=== PATIENT | female | born 1960 | race American Indian/Alaskan Native ===

== ENCOUNTER 2017-09-09 19:22 | Emergency (ER) | payer MEDICAID ==
[2017-09-09] MEDS ORDERED: ASPIRIN PO ONE (19:44)
[2017-09-09 20:54] LABS: Hematocrit 34.4 % (30.3-42.9); Lymphocytes % (Auto) 18.8 % (13.4-35.0); Mean Corpuscular HGB Conc 32 % (30-34); Mean Corpuscular Hemoglobin 29 pg (28-32); Mean Corpuscular Volume 89 fl (79-97); Platelet Count 184 K/mm3 (140-440); Red Blood Count 3.85 M/mm3 (3.65-5.03); Red Cell Distribution Width 22.4 % (13.2-15.2)
[2017-09-09 20:55] LABS: Basophils % (Auto) 0.7 % (0.0-1.8); Eosinophils # (Auto) 0.2 K/mm3 (0.0-0.4); Eosinophils % (Auto) 2.3 % (0.0-4.3); Lymphocytes # (Auto) 1.3 K/mm3 (1.2-5.4); Monocytes # (Auto) 0.6 K/mm3 (0.0-0.8); Monocytes % (Auto) 8.6 % (0.0-7.3)
[2017-09-09 21:03] LABS: BUN/Creatinine Ratio 15; Blood Urea Nitrogen 15 mg/dL (7-17); Calcium 8.4 mg/dL (8.4-10.2); Hemolysis Index 21
[2017-09-10] MEDS ORDERED: NACL 0.9% 500 ML 500 ML IV ONE (04:20)
[2017-09-10] MEDS ORDERED: HumuLIN R IV ONE ×2 (06:31→06:32)
--- NOTE | 2017-09-10 06:50 | Emergency Department Report ---
ED Chest Pain HPI - General Chief Complaint: Chest Pain Stated Complaint: PAIN Time Seen by Provider: 09/10/17 06:17 Source: patient, old records reviewed (reviewed discharge summary on July and August admission) Mode of arrival: Ambulatory Limitations: No Limitations - History of Present Illness Initial Comments: 57-year-old female is a past medical history insignificant diabetes, CHF with EF of 30-35%, AICD, CAD status post PCI, hypertension, PE, and hypertension presents with chest 2 days. Pain is in the center of lower tenderness to area , intermittent, sharp in nature. Pain is rated a 4/10 in intensity, aggravated with breathing and movement. No alleviating factors. Denies breath, nausea, vomiting, or diaphoresis. Compliant with Xarelto. Patient was recently admitted here September 04 and discharged on the . She had a CT angiogram performed on September 04 and was negative for pulmonary embolism. She had 3 negative cardiac enzymes. Stress test was positive for ischemia. Patient was anemic and received one unit of PRBC. She underwent coronary angiography which revealed nonobstructive CAD. Cardiology determined that patient was clinically stable for discharge and follow-up as outpatient with her primary provider within 7 days. Recommended GI follow-up to rule out gastric cause of anemia. Severity scale (0 -10): 5 - Related Data Home Medications Medication Instructions Recorded Confirmed Last Taken Acetaminophen [Acetaminophen ER] 650 mg PO Q4H 06/14/17 08/03/17 Unknown Clopidogrel [Plavix] 75 mg PO QDAY 06/14/17 08/03/17 Unknown ISOSORBIDE MONOnitrate [Imdur ER] 60 mg PO QDAY 06/14/17 08/03/17 Unknown Carvedilol [Coreg] 12.5 mg PO BID 07/12/17 08/03/17 Unknown Rosuvastatin Calcium [Crestor] 40 mg PO DAILY 07/12/17 08/03/17 Unknown Previous Rx's Medication Instructions Recorded Last Taken Type Aspirin EC [Aspirin Enteric Coated 81 mg PO QDAY #30 tablet 06/15/17 Unknown Rx TAB] Potassium Chloride 20 meq PO DAILY #30 tablet.er 07/15/17 Unknown Rx Carvedilol [Coreg] 12.5 mg PO BID #60 tablet 08/09/17 Unknown Rx Furosemide [Lasix TAB] 20 mg PO QDAY #30 tablet 08/09/17 Unknown Rx HYDROcodone/APAP 10-325 [[place] 1 each PO Q6H PRN #10 tablet 08/09/17 Unknown Rx 10-325 mg TAB] Insulin Glargine [Lantus VIAL] 5 units SUB-Q QAMDIAB 30 Days #30 08/09/17 Unknown Rx units Potassium Chloride [K-Dur] 10 meq PO QDAY #60 tablet 08/09/17 Unknown Rx Rivaroxaban [Xarelto] 15 mg PO QPM #30 tablet 08/09/17 Unknown Rx HYDROcodone/APAP 7.5-325 [[place] 1 each PO Q6HR PRN #10 tablet 09/10/17 Unknown Rx 7.5/325] Allergies Allergy/AdvReac Type Severity Reaction Status Date / Time codeine Allergy Hives Verified 07/12/17 07:54 Heart Score - HEART Score History: Slightly suspicious EKG: Non-specific Age: 45-65 Risk factors: > 3 risk factors or hx of atherosclerotic disease Troponin: < normal limit HEART Score: 4 ED Review of Systems ROS: Stated complaint: PAIN Other details as noted in HPI Comment: All other systems reviewed and negative ED Past Medical Hx - Past Medical History Hx Hypertension: Yes Hx Heart Attack/AMI: No Hx Congestive Heart Failure: Yes Hx Diabetes: Yes Hx Deep Vein Thrombosis: Yes Hx Asthma: No Hx COPD: No Hx Dementia: No Hx HIV: No - Surgical History Hx Coronary Stent: Yes Additional Surgical History: hysterectomy - Social History Smoking Status: Never Smoker Substance Use Type: None - Medications Home Medications: Home Medications Medication Instructions Recorded Confirmed Last Taken Type Acetaminophen [Acetaminophen ER] 650 mg PO Q4H 06/14/17 08/03/17 Unknown History Clopidogrel [Plavix] 75 mg PO QDAY 06/14/17 08/03/17 Unknown History ISOSORBIDE MONOnitrate [Imdur ER] 60 mg PO QDAY 06/14/17 08/03/17 Unknown History Aspirin EC [Aspirin Enteric Coated 81 mg PO QDAY #30 tablet 06/15/17 08/03/17 Unknown Rx TAB] Carvedilol [Coreg] 12.5 mg PO BID 07/12/17 08/03/17 Unknown History Rosuvastatin Calcium [Crestor] 40 mg PO DAILY 07/12/17 08/03/17 Unknown History Potassium Chloride 20 meq PO DAILY #30 tablet.er 07/15/17 08/03/17 Unknown Rx Carvedilol [Coreg] 12.5 mg PO BID #60 tablet 08/09/17 Unknown Rx Furosemide [Lasix TAB] 20 mg PO QDAY #30 tablet 08/09/17 Unknown Rx HYDROcodone/APAP 10-325 [[place] 1 each PO Q6H PRN #10 tablet 08/09/17 Unknown Rx 10-325 mg TAB] Insulin Glargine [Lantus VIAL] 5 units SUB-Q QAMDIAB 30 Days #30 08/09/17 Unknown Rx units Potassium Chloride [K-Dur] 10 meq PO QDAY #60 tablet 08/09/17 08/03/17 Unknown Rx Rivaroxaban [Xarelto] 15 mg PO QPM #30 tablet 08/09/17 Unknown Rx HYDROcodone/APAP 7.5-325 [[place] 1 each PO Q6HR PRN #10 tablet 09/10/17 Unknown Rx 7.5/325] ED Physical Exam - General Limitations: No Limitations - Other Other exam information: General: No limitations, patient is alert in no acute distress Head exam: Atraumatic, normocephalic Eyes exam: Normal appearance ENT: Moist mucous membrane, normal oropharynx Neck exam: Normal inspection, full range of motion, no meningismus nontender Respiratory exam: Clear to auscultation bilateral, no wheezes, rales, crackles Cardiovascular: Normal rate and rhythm, normal heart sounds. Sternum nontender Abdomen: Soft, nondistended, and nontender, with normal bowel sounds, no rebound, or guarding Extremity: Full range of motion normal inspection no deformity, no Tenderness or edema Back: Normal Inspection, full range of motion, no tenderness Neurologic: Alert, oriented x3, cranial nerves intact, no motor or sensory deficit Psychiatric: normal affect, normal mood Skin: Warm, dry, intact ED Course Vital Signs 09/09/17 09/10/17 09/10/17 19:41 01:09 01:30 Temperature 97.8 F 97.8 F Pulse Rate 89 101 H 97 H Respiratory 18 21 19 Rate Blood Pressure 179/89 156/93 Blood Pressure 176/119 [Left] O2 Sat by Pulse 100 100 100 Oximetry 09/10/17 09/10/17 09/10/17 02:00 03:00 03:46 Temperature Pulse Rate 95 H 105 H 107 H Respiratory 18 18 13 Rate Blood Pressure 156/93 169/96 150/73 Blood Pressure [Left] O2 Sat by Pulse 100 100 100 Oximetry 09/10/17 09/10/17 09/10/17 04:00 05:16 06:16 Temperature Pulse Rate 92 H 98 H 89 Respiratory 16 18 16 Rate Blood Pressure 153/82 147/82 136/71 Blood Pressure [Left] O2 Sat by Pulse 100 98 98 Oximetry 09/10/17 09/10/17 09/10/17 06:30 06:52 07:00 Temperature 98.5 F Pulse Rate 97 H 104 H 82 Respiratory 14 19 17 Rate Blood Pressure 154/84 154/84 Blood Pressure 142/77 [Left] O2 Sat by Pulse 100 100 100 Oximetry 09/10/17 09/10/17 09/10/17 07:08 07:16 07:30 Temperature Pulse Rate 99 H Respiratory 27 H Rate Blood Pressure 154/84 154/84 153/90 Blood Pressure [Left] O2 Sat by Pulse 100 100 100 Oximetry 09/10/17 09/10/17 09/10/17 07:46 08:00 08:16 Temperature Pulse Rate 96 H 94 H 99 H Respiratory 21 34 H 18 Rate Blood Pressure 154/84 152/88 152/88 Blood Pressure [Left] O2 Sat by Pulse 100 100 99 Oximetry 09/10/17 09/10/17 09/10/17 08:30 08:46 08:54 Temperature Pulse Rate 95 H 99 H Respiratory 18 16 17 Rate Blood Pressure 145/80 145/80 Blood Pressure [Left] O2 Sat by Pulse 99 99 Oximetry 09/10/17 09/10/17 09/10/17 09:00 09:16 09:30 Temperature Pulse Rate 98 H 105 H 106 H Respiratory 17 15 17 Rate Blood Pressure 146/77 145/80 137/86 Blood Pressure [Left] O2 Sat by Pulse 100 99 98 Oximetry 09/10/17 09/10/17 09/10/17 09:46 09:54 10:00 Temperature Pulse Rate 105 H Respiratory 17 17 Rate Blood Pressure 146/77 137/86 Blood Pressure [Left] O2 Sat by Pulse Oximetry 09/10/17 10:13 Temperature 98.5 F Pulse Rate 96 H Respiratory 18 Rate Blood Pressure Blood Pressure 140/84 [Left] O2 Sat by Pulse 98 Oximetry GISELLE score - Giselle Score Age > 65: (0) No Aspirin use within the Past 7 Days: (1) Yes 3 or more CAD Risk Factors: (1) Yes 2 or more Angina events in past 24 hrs: (1) Yes Known CAD with more than 50% Stenosis: (1) Yes Elevated Cardiac Markers: (0) No ST Deviation Greater than 0.5mm: (0) No GISELLE Score: 4 ED Medical Decision Making - Lab Data Result diagrams: 09/09/17 20:31 09/10/17 06:38 Lab Results 09/09/17 09/09/17 09/09/17 Range/Units 20:31 20:31 23:21 WBC 6.8 (4.5-11.0) K/mm3 RBC 3.85 (3.65-5.03) M/mm3 Hgb 11.0 (10.1-14.3) gm/dl Hct 34.4 (30.3-42.9) % MCV 89 (79-97) fl MCH 29 (28-32) pg MCHC 32 (30-34) % RDW 22.4 H (13.2-15.2) % Plt Count 184 (140-440) K/mm3 Lymph % (Auto) 18.8 (13.4-35.0) % Elliott % (Auto) 8.6 H (0.0-7.3) % Eos % (Auto) 2.3 (0.0-4.3) % Baso % (Auto) 0.7 (0.0-1.8) % Lymph # 1.3 (1.2-5.4) K/mm3 Elliott # 0.6 (0.0-0.8) K/mm3 Eos # 0.2 (0.0-0.4) K/mm3 Baso # 0.0 (0.0-0.1) K/mm3 Seg Neutrophils % 69.6 (40.0-70.0) % Seg Neutrophils # 4.8 (1.8-7.7) K/mm3 VBG pH (7.320-7.420) Sodium 134 L (137-145) mmol/L Potassium 4.2 (3.6-5.0) mmol/L Chloride 95.5 L (98-107) mmol/L Carbon Dioxide 20 L (22-30) mmol/L Anion Gap 23 mmol/L BUN 15 (7-17) mg/dL Creatinine 1.0 (0.7-1.2) mg/dL Estimated GFR > 60 ml/min BUN/Creatinine Ratio 15 % Glucose 398 H (65-100) mg/dL POC Glucose (70-105) Calcium 8.4 (8.4-10.2) mg/dL Troponin T < 0.010 < 0.010 (0.00-0.029) ng/mL Urine Color (Yellow) Urine Turbidity (Clear) Urine pH (5.0-7.0) Ur Specific [place] (1.003-1.030) Urine Protein (Negative) mg/dL Urine Glucose (UA) (Negative) mg/dL Urine Ketones (Negative) mg/dL Urine Blood (Negative) Urine Nitrite (Negative) Urine Bilirubin (Negative) Urine Urobilinogen (<2.0) mg/dL Ur Leukocyte Esterase (Negative) Urine WBC (Auto) (0.0-6.0) /HPF Urine RBC (Auto) (0.0-6.0) /HPF U Epithel Cells (Auto) (0-13.0) /HPF 09/10/17 09/10/17 09/10/17 Range/Units 01:34 03:53 05:59 WBC (4.5-11.0) K/mm3 RBC (3.65-5.03) M/mm3 Hgb (10.1-14.3) gm/dl Hct (30.3-42.9) % MCV (79-97) fl MCH (28-32) pg MCHC (30-34) % RDW (13.2-15.2) % Plt Count (140-440) K/mm3 Lymph % (Auto) (13.4-35.0) % Elliott % (Auto) (0.0-7.3) % Eos % (Auto) (0.0-4.3) % Baso % (Auto) (0.0-1.8) % Lymph # (1.2-5.4) K/mm3 Elliott # (0.0-0.8) K/mm3 Eos # (0.0-0.4) K/mm3 Baso # (0.0-0.1) K/mm3 Seg Neutrophils % (40.0-70.0) % Seg Neutrophils # (1.8-7.7) K/mm3 VBG pH (7.320-7.420) Sodium (137-145) mmol/L Potassium (3.6-5.0) mmol/L Chloride (98-107) mmol/L Carbon Dioxide (22-30) mmol/L Anion Gap mmol/L BUN (7-17) mg/dL Creatinine (0.7-1.2) mg/dL Estimated GFR ml/min BUN/Creatinine Ratio % Glucose (65-100) mg/dL POC Glucose 442 H 437 H (70-105) Calcium (8.4-10.2) mg/dL Troponin T < 0.010 (0.00-0.029) ng/mL Urine Color (Yellow) Urine Turbidity (Clear) Urine pH (5.0-7.0) Ur Specific [place] (1.003-1.030) Urine Protein (Negative) mg/dL Urine Glucose (UA) (Negative) mg/dL Urine Ketones (Negative) mg/dL Urine Blood (Negative) Urine Nitrite (Negative) Urine Bilirubin (Negative) Urine Urobilinogen (<2.0) mg/dL Ur Leukocyte Esterase (Negative) Urine WBC (Auto) (0.0-6.0) /HPF Urine RBC (Auto) (0.0-6.0) /HPF U Epithel Cells (Auto) (0-13.0) /HPF 09/10/17 09/10/17 09/10/17 Range/Units 06:38 06:38 06:50 WBC (4.5-11.0) K/mm3 RBC (3.65-5.03) M/mm3 Hgb (10.1-14.3) gm/dl Hct (30.3-42.9) % MCV (79-97) fl MCH (28-32) pg MCHC (30-34) % RDW (13.2-15.2) % Plt Count (140-440) K/mm3 Lymph % (Auto) (13.4-35.0) % Elliott % (Auto) (0.0-7.3) % Eos % (Auto) (0.0-4.3) % Baso % (Auto) (0.0-1.8) % Lymph # (1.2-5.4) K/mm3 Elliott # (0.0-0.8) K/mm3 Eos # (0.0-0.4) K/mm3 Baso # (0.0-0.1) K/mm3 Seg Neutrophils % (40.0-70.0) % Seg Neutrophils # (1.8-7.7) K/mm3 VBG pH 7.434 H (7.320-7.420) Sodium 134 L (137-145) mmol/L Potassium 4.7 (3.6-5.0) mmol/L Chloride 99.5 (98-107) mmol/L Carbon Dioxide 23 (22-30) mmol/L Anion Gap 16 mmol/L BUN 15 (7-17) mg/dL Creatinine 0.8 (0.7-1.2) mg/dL Estimated GFR > 60 ml/min BUN/Creatinine Ratio 19 % Glucose 374 H (65-100) mg/dL POC Glucose (70-105) Calcium 8.5 (8.4-10.2) mg/dL Troponin T (0.00-0.029) ng/mL Urine Color Straw (Yellow) Urine Turbidity Clear (Clear) Urine pH 7.0 (5.0-7.0) Ur Specific [place] 1.021 (1.003-1.030) Urine Protein <15 mg/dl (Negative) mg/dL Urine Glucose (UA) >=500 (Negative) mg/dL Urine Ketones Neg (Negative) mg/dL Urine Blood Neg (Negative) Urine Nitrite Neg (Negative) Urine Bilirubin Neg (Negative) Urine Urobilinogen < 2.0 (<2.0) mg/dL Ur Leukocyte Esterase Neg (Negative) Urine WBC (Auto) 2.0 (0.0-6.0) /HPF Urine RBC (Auto) 1.0 (0.0-6.0) /HPF U Epithel Cells (Auto) < 1.0 (0-13.0) /HPF 09/10/17 Range/Units 07:58 WBC (4.5-11.0) K/mm3 RBC (3.65-5.03) M/mm3 Hgb (10.1-14.3) gm/dl Hct (30.3-42.9) % MCV (79-97) fl MCH (28-32) pg MCHC (30-34) % RDW (13.2-15.2) % Plt Count (140-440) K/mm3 Lymph % (Auto) (13.4-35.0) % Elliott % (Auto) (0.0-7.3) % Eos % (Auto) (0.0-4.3) % Baso % (Auto) (0.0-1.8) % Lymph # (1.2-5.4) K/mm3 Elliott # (0.0-0.8) K/mm3 Eos # (0.0-0.4) K/mm3 Baso # (0.0-0.1) K/mm3 Seg Neutrophils % (40.0-70.0) % Seg Neutrophils # (1.8-7.7) K/mm3 VBG pH (7.320-7.420) Sodium (137-145) mmol/L Potassium (3.6-5.0) mmol/L Chloride (98-107) mmol/L Carbon Dioxide (22-30) mmol/L Anion Gap mmol/L BUN (7-17) mg/dL Creatinine (0.7-1.2) mg/dL Estimated GFR ml/min BUN/Creatinine Ratio % Glucose (65-100) mg/dL POC Glucose 109 H (70-105) Calcium (8.4-10.2) mg/dL Troponin T (0.00-0.029) ng/mL Urine Color (Yellow) Urine Turbidity (Clear) Urine pH (5.0-7.0) Ur Specific [place] (1.003-1.030) Urine Protein (Negative) mg/dL Urine Glucose (UA) (Negative) mg/dL Urine Ketones (Negative) mg/dL Urine Blood (Negative) Urine Nitrite (Negative) Urine Bilirubin (Negative) Urine Urobilinogen (<2.0) mg/dL Ur Leukocyte Esterase (Negative) Urine WBC (Auto) (0.0-6.0) /HPF Urine RBC (Auto) (0.0-6.0) /HPF U Epithel Cells (Auto) (0-13.0) /HPF - EKG Data -: EKG Interpreted by Me (LBB) EKG shows normal: sinus rhythm, axis (59), QRS complexes (123), ST-T waves (no stemi) Rate: normal - EKG Data When compared to previous EKG there are: no significant change - Medical Decision Making Chest pain Atypical Cardiac enzymes negative EKG unchanged Recent admission and chest pain workup including CT angiogram, stress test, and cardiac Patient presented to the ED one day after discharge with same pain Hydrocodone given for pain Hyperglycemia No signs of DKA Improved after insulin Previous anemia Resolved status post recent transfusion H&H improved compared to previous Patient will be discharged home - Differential Diagnosis atypical chest pain, costochondritis, PA, PE, DKA Critical Care Time: No Critical care attestation.: If time is entered above; I have spent that time in minutes in the direct care of this critically ill patient, excluding procedure time. ED Disposition Clinical Impression: Uncontrolled diabetes mellitus, Atypical chest pain Disposition: TO HOME OR SELFCARE Is pt being admited?: No Does the pt Need Aspirin: No Condition: Stable Instructions: Chest Pain (ED), Diabetes Mellitus Type 2 in Adults (ED) Additional Instructions: Follow up with your primary care doctor and medical detailist Prescriptions: HYDROcodone/APAP 7.5-325 [[place] 7.5/325] 1 each PO Q6HR PRN #10 tablet PRN Reason: Pain Referrals: CORWIN GARZA MD [Primary Care Provider] - 3-5 Days your, primary care doctor [Other] - 3-5 Days your, medical detailist [Other] - 3-5 Days Time of Disposition: 08:08
[2017-09-10 07:07] LABS: BUN/Creatinine Ratio 19; Blood Urea Nitrogen 15 mg/dL (7-17); Calcium 8.5 mg/dL (8.4-10.2); Hemolysis Index 82
[2017-09-10 07:09] LABS: Bilirubin,Urine NEG (Negative); Blood,Urine NEG (Negative); Color,Urine Straw (Yellow); Protein,Urine <15 mg/dL mg/dL (Negative); Urobilinogen,Urine < 2.0 mg/dL (<2.0)
[2017-09-10] MEDS ORDERED: NORCO 10/325 PO ONE (08:16)
[2017-09-10 11:23] VITALS: BP 140/84
== END 2017-09-10 10:13 | disposition home or self-care (01) ==
LOC: ED 19:22
DX: E11.9 Type 2 diabetes mellitus without complications (principal); R07.89 Other chest pain; I10 Essential (primary) hypertension
CPT/HCPCS: 36415; 80048; 81001; 82805; 82962; 84484; 85025; 93005; 93010; 96374; 99284; J7040; J1815

== ENCOUNTER 2017-09-22 06:28 | Emergency (ER) | payer MEDICAID ==
[2017-09-22] MEDS ORDERED: ASPIRIN PO ONE (07:19)
[2017-09-22 07:46] LABS: Basophils # (Auto) 0.1 K/mm3 (0.0-0.1); Eosinophils # (Auto) 0.1 K/mm3 (0.0-0.4); Eosinophils % (Auto) 1.4 % (0.0-4.3); Hematocrit 27.6 % (30.3-42.9); Hemoglobin 8.8 gm/dl (10.1-14.3); Lymphocytes # (Auto) 1.6 K/mm3 (1.2-5.4); Lymphocytes % (Auto) 19.7 % (13.4-35.0); Mean Corpuscular HGB Conc 32 % (30-34); Mean Corpuscular Hemoglobin 29 pg (28-32); Mean Corpuscular Volume 91 fl (79-97); Monocytes # (Auto) 0.7 K/mm3 (0.0-0.8); Monocytes % (Auto) 9.1 % (0.0-7.3); Platelet Count 211 K/mm3 (140-440); Red Blood Count 3.05 M/mm3 (3.65-5.03); Red Cell Distribution Width 22.7 % (13.2-15.2)
[2017-09-22 08:08] LABS: Calcium 8.6 mg/dL (8.4-10.2)
[2017-09-22 08:24] LABS: Chol/HDL Ratio 3.13 %
[2017-09-22] MEDS ORDERED: ZOFRAN ODT PO ONE ×2 (09:54→17:31)
[2017-09-22] MEDS ORDERED: NORCO 5/325 PO ONE ×2 (09:54→16:56)
--- NOTE | 2017-09-22 09:56 | Emergency Department Report ---
Blank Doc - Documentation Documentation: Medical screening note: Patient is a 57-year-old female past medical history of CHF diabetes hypertension and significant coronary disease. Patient is presenting with chest pain. Patient states the heavy sensation was radiation to the right arm with shortness of breath and nausea. Patient also states that she maybe had a subjective fever for arrival. Patient states chest pain has been present for approximately 2 days. Patient states this is similar to chest pain she's had in the past. Patient has a history of 8 stents. The last that was placed in 2010. Patient will be moved to the [facility] area to be placed on nurse monitoring. First troponin upper limits of normal. Patient EKG does not show evidence of a STEMI. Patient will be sent to the [facility] for likely admission. Is
--- NOTE | 2017-09-22 10:44 | XRay Report ---
CHEST XRAY, 2 VIEWS: History: Chest pain. Findings: There is mild cardiomegaly. A single lead pacemaker device terminates in the right ventricle. Pulmonary vessels are within normal limits. The lungs are clear and fully expanded. No infiltrate, pleural effusion or pneumothorax. Normal thoracic cage. IMPRESSION: Cardiomegaly.
[2017-09-22] MEDS ORDERED: ULTRAM PO ONE (10:46)
[2017-09-22] MEDS ORDERED: NACL 0.9% 500 ML 500 ML IV ONE (10:48)
[2017-09-22 11:10] LABS: INR 1.04 (0.87-1.13)
[2017-09-22 11:11] LABS: Partial Thromboplastin Time 29.6 Sec. (24.2-36.6)
--- NOTE | 2017-09-22 11:21 | Emergency Department Report ---
ED Chest Pain HPI - General Chief Complaint: Chest Pain Stated Complaint: CHEST PAIN Time Seen by Provider: 09/22/17 09:45 Source: patient Mode of arrival: Ambulatory Limitations: No Limitations - History of Present Illness Initial Comments: 57-year-old female is a past medical history insignificant diabetes, CHF with EF of 30-35%, AICD, CAD status post PCI, hypertension, PE, and hypertension presents with chest 2 days. Pain is in the center of lower tenderness to area , intermittent, sharp in nature. Pain is rated a 7/10 in intensity, aggravated with breathing and movement. No alleviating factors. Positive shortness of breath, nausea, and vomiting. Patient 4 episodes of vomiting today. Denies melena, hematochezia, hematemesis, or diarrhea. Fever 101.0 point yesterday. Patient denies cough or dysuria. Medical records are reviewed and patient has frequent ER visits with intermittent hospitalizations for last several months. Patient ran out of her tramadol last week. She is compliant with he Xarleto. Patient was recently admitted here September 04 and discharged on the . She had a CT angiogram performed on September 04 and was negative for pulmonary embolism. She had 3 negative cardiac enzymes. Stress test was positive for ischemia. Patient was anemic and received one unit of PRBC. She underwent coronary angiography which revealed nonobstructive CAD. Cardiology determined that patient was clinically stable for discharge and follow-up as outpatient with her primary provider within 7 days. Recommended GI follow-up to rule out gastric cause of anemia. Patient has presented to the ER with similar chest pain since this discharge and cardiac workup including September 09 and September 10. [facility]iology group: [facility] Severity scale (0 -10): 7 - Related Data Home Medications Medication Instructions Recorded Confirmed Last Taken Acetaminophen [Acetaminophen ER] 650 mg PO Q4H 06/14/17 08/03/17 Unknown Clopidogrel [Plavix] 75 mg PO QDAY 06/14/17 08/03/17 Unknown ISOSORBIDE MONOnitrate [Imdur ER] 60 mg PO QDAY 06/14/17 08/03/17 Unknown Carvedilol [Coreg] 12.5 mg PO BID 07/12/17 08/03/17 Unknown Rosuvastatin Calcium [Crestor] 40 mg PO DAILY 07/12/17 08/03/17 Unknown Previous Rx's Medication Instructions Recorded Last Taken Type Aspirin EC [Aspirin Enteric Coated 81 mg PO QDAY #30 tablet 06/15/17 Unknown Rx TAB] Potassium Chloride 20 meq PO DAILY #30 tablet.er 07/15/17 Unknown Rx Carvedilol [Coreg] 12.5 mg PO BID #60 tablet 08/09/17 Unknown Rx Furosemide [Lasix TAB] 20 mg PO QDAY #30 tablet 08/09/17 Unknown Rx HYDROcodone/APAP 10-325 [Igo 1 each PO Q6H PRN #10 tablet 08/09/17 Unknown Rx 10-325 mg TAB] Insulin Glargine [Lantus VIAL] 5 units SUB-Q QAMDIAB 30 Days #30 08/09/17 Unknown Rx units Potassium Chloride [K-Dur] 10 meq PO QDAY #60 tablet 08/09/17 Unknown Rx Rivaroxaban [Xarelto] 15 mg PO QPM #30 tablet 08/09/17 Unknown Rx HYDROcodone/APAP 7.5-325 [Igo 1 each PO Q6HR PRN #10 tablet 09/10/17 Unknown Rx 7.5/325] Levofloxacin [Levaquin TAB] 500 mg PO QDAY #3 tablet 09/22/17 Unknown Rx Ondansetron [Zofran Odt] 4 mg PO Q8HR PRN #20 tab.rapdis 09/22/17 Unknown Rx traMADol [Ultram 50 MG tab] 50 mg PO Q6HR PRN #20 tablet 09/22/17 Unknown Rx Allergies Allergy/AdvReac Type Severity Reaction Status Date / Time codeine Allergy Hives Verified 07/12/17 07:54 Heart Score - HEART Score History: Slightly suspicious EKG: Non-specific Age: 45-65 Risk factors: > 3 risk factors or hx of atherosclerotic disease Troponin: 1-3x normal limit HEART Score: 5 ED Review of Systems ROS: Stated complaint: CHEST PAIN Other details as noted in HPI Comment: All other systems reviewed and negative ED Past Medical Hx - Past Medical History Previous Medical History?: Yes Hx Hypertension: Yes Hx Heart Attack/AMI: No Hx Congestive Heart Failure: Yes Hx Diabetes: Yes Hx Deep Vein Thrombosis: Yes Hx Asthma: No Hx COPD: No Hx Dementia: No Hx HIV: No - Surgical History Past Surgical History?: Yes Hx Coronary Stent: Yes (8 stents) Additional Surgical History: hysterectomy - Social History Smoking Status: Never Smoker Substance Use Type: Prescribed - Medications Home Medications: Home Medications Medication Instructions Recorded Confirmed Last Taken Type Acetaminophen [Acetaminophen ER] 650 mg PO Q4H 06/14/17 08/03/17 Unknown History Clopidogrel [Plavix] 75 mg PO QDAY 06/14/17 08/03/17 Unknown History ISOSORBIDE MONOnitrate [Imdur ER] 60 mg PO QDAY 06/14/17 08/03/17 Unknown History Aspirin EC [Aspirin Enteric Coated 81 mg PO QDAY #30 tablet 06/15/17 08/03/17 Unknown Rx TAB] Carvedilol [Coreg] 12.5 mg PO BID 07/12/17 08/03/17 Unknown History Rosuvastatin Calcium [Crestor] 40 mg PO DAILY 07/12/17 08/03/17 Unknown History Potassium Chloride 20 meq PO DAILY #30 tablet.er 07/15/17 08/03/17 Unknown Rx Carvedilol [Coreg] 12.5 mg PO BID #60 tablet 08/09/17 Unknown Rx Furosemide [Lasix TAB] 20 mg PO QDAY #30 tablet 08/09/17 Unknown Rx HYDROcodone/APAP 10-325 [Igo 1 each PO Q6H PRN #10 tablet 08/09/17 Unknown Rx 10-325 mg TAB] Insulin Glargine [Lantus VIAL] 5 units SUB-Q QAMDIAB 30 Days #30 08/09/17 Unknown Rx units Potassium Chloride [K-Dur] 10 meq PO QDAY #60 tablet 08/09/17 08/03/17 Unknown Rx Rivaroxaban [Xarelto] 15 mg PO QPM #30 tablet 08/09/17 Unknown Rx HYDROcodone/APAP 7.5-325 [Igo 1 each PO Q6HR PRN #10 tablet 09/10/17 Unknown Rx 7.5/325] Levofloxacin [Levaquin TAB] 500 mg PO QDAY #3 tablet 09/22/17 Unknown Rx Ondansetron [Zofran Odt] 4 mg PO Q8HR PRN #20 tab.rapdis 09/22/17 Unknown Rx traMADol [Ultram 50 MG tab] 50 mg PO Q6HR PRN #20 tablet 09/22/17 Unknown Rx ED Physical Exam - General Limitations: No Limitations - Other Other exam information: General: No limitations, patient is alert in no acute distress Head exam: Atraumatic, normocephalic Eyes exam: Normal appearance, anicteric sclerae ENT: Moist mucous membrane, normal oropharynx Neck exam: Normal inspection, full range of motion, no meningismus nontender Respiratory exam: Clear to auscultation bilateral, no wheezes, rales, crackles Cardiovascular: Regular rhythm. Positive systolic murmur Abdomen: Soft, generalized tenderness to palpation, normal bowel sounds. No rebound or guarding Extremity: Full range of motion normal inspection no deformity Back: Normal Inspection, full range of motion, no tenderness Neurologic: Alert, oriented x3, cranial nerves intact, no motor or sensory deficit Psychiatric: normal affect, normal mood Skin: Warm, dry, intact ED Course Vital Signs 09/22/17 09/22/17 09/22/17 07:16 11:00 12:11 Temperature 98 F Pulse Rate 54 L 76 Respiratory 20 16 18 Rate Blood Pressure 155/92 Blood Pressure 141/111 [Right] O2 Sat by Pulse 99 97 97 Oximetry 09/22/17 12:33 Temperature Pulse Rate 97 H Respiratory 18 Rate Blood Pressure Blood Pressure 138/97 [Right] O2 Sat by Pulse 100 Oximetry - Reevaluation(s) Reevaluation #1: 09/22/17 16:41 pt without vomting after meds, pain controlled - Consultations Consultation #1: 09/22/17 11:30 case d/w America Cabrera, [facility], will consult - EJ/Peripheral Line Neck L Time Out Performed: Yes Indications: nurses unable to establis Skin Cleansed in Sterile Fashion: Yes Size: 20 Dressing Placed: Tegaderm, tape Patient Tolerated Procedure: well, no complications CLARENCE score - Clarence Score Age > 65: (0) No Aspirin use within the Past 7 Days: (1) Yes 3 or more CAD Risk Factors: (1) Yes 2 or more Angina events in past 24 hrs: (1) Yes Known CAD with more than 50% Stenosis: (1) Yes Elevated Cardiac Markers: (1) Yes ST Deviation Greater than 0.5mm: (0) No CLARENCE Score: 5 ED Medical Decision Making - Lab Data Result diagrams: 09/22/17 07:20 09/22/17 07:20 Lab Results 09/22/17 09/22/17 09/22/17 Range/Units 07:20 07:20 10:44 WBC 8.2 (4.5-11.0) K/mm3 RBC 3.05 L (3.65-5.03) M/mm3 Hgb 8.8 L (10.1-14.3) gm/dl Hct 27.6 L (30.3-42.9) % MCV 91 (79-97) fl MCH 29 (28-32) pg MCHC 32 (30-34) % RDW 22.7 H (13.2-15.2) % Plt Count 211 (140-440) K/mm3 Lymph % (Auto) 19.7 (13.4-35.0) % [place] % (Auto) 9.1 H (0.0-7.3) % Eos % (Auto) 1.4 (0.0-4.3) % Baso % (Auto) 1.0 (0.0-1.8) % Lymph # 1.6 (1.2-5.4) K/mm3 [place] # 0.7 (0.0-0.8) K/mm3 Eos # 0.1 (0.0-0.4) K/mm3 Baso # 0.1 (0.0-0.1) K/mm3 Seg Neutrophils % 68.8 (40.0-70.0) % Seg Neutrophils # 5.6 (1.8-7.7) K/mm3 PT (12.2-14.9) Sec. INR (0.87-1.13) APTT (24.2-36.6) Sec. Sodium 133 L (137-145) mmol/L Potassium 3.6 (3.6-5.0) mmol/L Chloride 96.6 L (98-107) mmol/L Carbon Dioxide 18 L (22-30) mmol/L Anion Gap 22 mmol/L BUN 28 H (7-17) mg/dL Creatinine 1.2 (0.7-1.2) mg/dL Estimated GFR 56 ml/min BUN/Creatinine Ratio 23 % Glucose 244 H (65-100) mg/dL Calcium 8.6 (8.4-10.2) mg/dL Total Bilirubin (0.1-1.2) mg/dL Direct Bilirubin (0-0.2) mg/dL Indirect Bilirubin mg/dL AST (5-40) units/L ALT (7-56) units/L Alkaline Phosphatase (35-129) units/L Troponin T 0.034 H 0.029 (0.00-0.029) ng/mL Total Protein (6.3-8.2) g/dL Albumin (3.9-5) g/dL Albumin/Globulin Ratio % Triglycerides 87 (2-149) mg/dL Cholesterol 135 (50-199) mg/dL LDL Cholesterol Direct 91 (50-130) mg/dL HDL Cholesterol 43 (40-59) mg/dL Cholesterol/HDL Ratio 3.13 % Lipase (13-60) units/L Urine Color (Yellow) Urine Turbidity (Clear) Urine pH (5.0-7.0) Ur Specific Jay (1.003-1.030) Urine Protein (Negative) mg/dL Urine Glucose (UA) (Negative) mg/dL Urine Ketones (Negative) mg/dL Urine Blood (Negative) Urine Nitrite (Negative) Urine Bilirubin (Negative) Urine Urobilinogen (<2.0) mg/dL Ur Leukocyte Esterase (Negative) Urine WBC (Auto) (0.0-6.0) /HPF Urine RBC (Auto) (0.0-6.0) /HPF U Epithel Cells (Auto) (0-13.0) /HPF Urine Bacteria (Auto) (Negative) /HPF Urine Mucus /HPF 09/22/17 09/22/17 09/22/17 Range/Units 10:44 10:52 14:10 WBC (4.5-11.0) K/mm3 RBC (3.65-5.03) M/mm3 Hgb (10.1-14.3) gm/dl Hct (30.3-42.9) % MCV (79-97) fl MCH (28-32) pg MCHC (30-34) % RDW (13.2-15.2) % Plt Count (140-440) K/mm3 Lymph % (Auto) (13.4-35.0) % [place] % (Auto) (0.0-7.3) % Eos % (Auto) (0.0-4.3) % Baso % (Auto) (0.0-1.8) % Lymph # (1.2-5.4) K/mm3 [place] # (0.0-0.8) K/mm3 Eos # (0.0-0.4) K/mm3 Baso # (0.0-0.1) K/mm3 Seg Neutrophils % (40.0-70.0) % Seg Neutrophils # (1.8-7.7) K/mm3 PT 14.1 (12.2-14.9) Sec. INR 1.04 (0.87-1.13) APTT 29.6 (24.2-36.6) Sec. Sodium (137-145) mmol/L Potassium (3.6-5.0) mmol/L Chloride (98-107) mmol/L Carbon Dioxide (22-30) mmol/L Anion Gap mmol/L BUN (7-17) mg/dL Creatinine (0.7-1.2) mg/dL Estimated GFR ml/min BUN/Creatinine Ratio % Glucose (65-100) mg/dL Calcium (8.4-10.2) mg/dL Total Bilirubin 1.40 H (0.1-1.2) mg/dL Direct Bilirubin 0.7 H (0-0.2) mg/dL Indirect Bilirubin 0.7 mg/dL AST 27 (5-40) units/L ALT 20 (7-56) units/L Alkaline Phosphatase 247 H (35-129) units/L Troponin T (0.00-0.029) ng/mL Total Protein 7.2 (6.3-8.2) g/dL Albumin 3.3 L (3.9-5) g/dL Albumin/Globulin Ratio 0.8 % Triglycerides (2-149) mg/dL Cholesterol (50-199) mg/dL LDL Cholesterol Direct (50-130) mg/dL HDL Cholesterol (40-59) mg/dL Cholesterol/HDL Ratio % Lipase 44 (13-60) units/L Urine Color Yellow (Yellow) Urine Turbidity Clear (Clear) Urine pH 5.0 (5.0-7.0) Ur Specific Jay 1.046 H (1.003-1.030) Urine Protein 100 mg/dl (Negative) mg/dL Urine Glucose (UA) >=500 (Negative) mg/dL Urine Ketones Neg (Negative) mg/dL Urine Blood Mod (Negative) Urine Nitrite Neg (Negative) Urine Bilirubin Neg (Negative) Urine Urobilinogen 2.0 (<2.0) mg/dL Ur Leukocyte Esterase Sm (Negative) Urine WBC (Auto) 12.0 H (0.0-6.0) /HPF Urine RBC (Auto) 5.0 (0.0-6.0) /HPF U Epithel Cells (Auto) 2.0 (0-13.0) /HPF Urine Bacteria (Auto) 1+ (Negative) /HPF Urine Mucus Few /HPF 09/22/17 Range/Units 14:22 WBC (4.5-11.0) K/mm3 RBC (3.65-5.03) M/mm3 Hgb (10.1-14.3) gm/dl Hct (30.3-42.9) % MCV (79-97) fl MCH (28-32) pg MCHC (30-34) % RDW (13.2-15.2) % Plt Count (140-440) K/mm3 Lymph % (Auto) (13.4-35.0) % [place] % (Auto) (0.0-7.3) % Eos % (Auto) (0.0-4.3) % Baso % (Auto) (0.0-1.8) % Lymph # (1.2-5.4) K/mm3 [place] # (0.0-0.8) K/mm3 Eos # (0.0-0.4) K/mm3 Baso # (0.0-0.1) K/mm3 Seg Neutrophils % (40.0-70.0) % Seg Neutrophils # (1.8-7.7) K/mm3 PT (12.2-14.9) Sec. INR (0.87-1.13) APTT (24.2-36.6) Sec. Sodium (137-145) mmol/L Potassium (3.6-5.0) mmol/L Chloride (98-107) mmol/L Carbon Dioxide (22-30) mmol/L Anion Gap mmol/L BUN (7-17) mg/dL Creatinine (0.7-1.2) mg/dL Estimated GFR ml/min BUN/Creatinine Ratio % Glucose (65-100) mg/dL Calcium (8.4-10.2) mg/dL Total Bilirubin (0.1-1.2) mg/dL Direct Bilirubin (0-0.2) mg/dL Indirect Bilirubin mg/dL AST (5-40) units/L ALT (7-56) units/L Alkaline Phosphatase (35-129) units/L Troponin T 0.015 (0.00-0.029) ng/mL Total Protein (6.3-8.2) g/dL Albumin (3.9-5) g/dL Albumin/Globulin Ratio % Triglycerides (2-149) mg/dL Cholesterol (50-199) mg/dL LDL Cholesterol Direct (50-130) mg/dL HDL Cholesterol (40-59) mg/dL Cholesterol/HDL Ratio % Lipase (13-60) units/L Urine Color (Yellow) Urine Turbidity (Clear) Urine pH (5.0-7.0) Ur Specific Jay (1.003-1.030) Urine Protein (Negative) mg/dL Urine Glucose (UA) (Negative) mg/dL Urine Ketones (Negative) mg/dL Urine Blood (Negative) Urine Nitrite (Negative) Urine Bilirubin (Negative) Urine Urobilinogen (<2.0) mg/dL Ur Leukocyte Esterase (Negative) Urine WBC (Auto) (0.0-6.0) /HPF Urine RBC (Auto) (0.0-6.0) /HPF U Epithel Cells (Auto) (0-13.0) /HPF Urine Bacteria (Auto) (Negative) /HPF Urine Mucus /HPF - EKG Data -: EKG Interpreted by Md EKG shows normal: sinus rhythm, axis (-27), QRS complexes (114), ST-T waves ( lat t inv) Rate: normal (91) - Radiology Data Radiology results: report reviewed read by radiologist cxr: cmg CT ABD/Pelvis IV contrast IMPRESSION: Mural thickening in splenic flexure and descending colon may be edema, inflammation, or nonspecific colitis. Abdomen and pelvic slight free fluid may be reactive Cardiomegaly without pericardial effusion. Slight fat stranding in the abdominal wall and mesentery may reflect mild anasarca - Medical Decision Making chest pain: midline, sharp, reproducible and similar to previous episodes ekg unchanged, trop repeat shows downward trend recent neg cta chest and neg cath cardiolgy consulted, no further cardiac workup rec tramadol refill will be prescribed abd pain/nv: colitis ct suggestive of large bowel inflamation no diarhea gi consulted, fluroquinolone recommended. levaquin po in ed zofran prn uti Macobid initally given but will be d/yuriy on fluorquinolone to cover for uti and colitis no signs of sepsis will d/c with outpt tx - Differential Diagnosis viral syndrome, atypical cp, pe, mi, gastritis Critical Care Time: No Critical care attestation.: If time is entered above; I have spent that time in minutes in the direct care of this critically ill patient, excluding procedure time. ED Disposition Clinical Impression: AICD (automatic cardioverter/defibrillator) present, Costochondral chest pain, Colitis, UTI (urinary tract infection), Nausea and vomiting, Diabetes Disposition: OP ADMIT IP TO THIS HOSP Is pt being admited?: No Does the pt Need Aspirin: No Condition: Stable Instructions: Costochondritis (ED), Infectious Colitis (ED), Acute Nausea and Vomiting (ED), Urinary Tract Infection in Women (ED) Additional Instructions: Take the medication as prescribed. Follow-up with your doctor. Return if symptoms worsen as indicated by your discharge instructions Prescriptions: Levofloxacin [Levaquin TAB] 500 mg PO QDAY #3 tablet Ondansetron [Zofran Odt] 4 mg PO Q8HR PRN #20 tab.rapdis PRN Reason: Nausea And Vomiting traMADol [Ultram 50 MG tab] 50 mg PO Q6HR PRN #20 tablet PRN Reason: Pain Referrals: AZIZA ALEXANDRE [Other] - 3-5 Days Time of Disposition: 16:57
[2017-09-22 11:41] LABS: Albumin 3.3 g/dL (3.9-5); Bilirubin,Direct 0.7 mg/dL (0-0.2)
[2017-09-22] MEDS ORDERED: ZOFRAN IV ONE (12:08)
[2017-09-22] MEDS ORDERED: MORPHINE IV ONE ×2 (12:08→12:30)
[2017-09-22] MEDS ORDERED: TORADOL IV ONE (12:08)
--- NOTE | 2017-09-22 13:02 | Event Note ---
Date: 09/22/17 Pt evaluated in ED. Pt with atypical chest pain, recent LHC 09/08/2017 which showed nonobstructive CAD. ECG currently with NAF. Reanna negative for AMI. Pt may discharge home from cardiology standpoint. Recommend pt to follow up in our office with Dr. Mcallister within 1-2 weeks of hospital discharge ([phone]). Kassidy PALOMO NP / DR. HANNAH JEFFRIES
--- NOTE | 2017-09-22 14:21 | Cat Scan Report ---
FINAL REPORT EXAM: CT ABDOMEN PELVIS W CON HISTORY: n,v, abd pain, cp TECHNIQUE: CT examination of the ABDOMEN after IV contrast CT examination of the PELVIS after IV contrast PRIORS: None. FINDINGS: Slight lumbar curvature with lower left apex. Multifocal degenerative change in the regional skeleton. Cardiomegaly without pericardial effusion. A smoothly marginated hypodense left hepatic lobe lesion is nonspecific and statistically most likely reflect a cyst or hemangioma. It is too small to characterize in the lateral segment of the left hepatic lobe. Normal-appearing gallbladder, adrenals, and pancreas. No splenic abnormality. Intact normal caliber abdominal aorta with moderate calcified and noncalcified atherosclerotic plaque. Normal caliber IVC. Normal-appearing kidneys and visible ureters. Nonspecific slight free fluid adjacent to the liver and gallbladder. Nonspecific slight free fluid in the pelvis. Slight fat stranding in the mesentery and abdominal wall may reflect anasarca. Normal-appearing stomach and duodenum. Nonspecific prominence of small bowel gas and caliber in the abdomen and pelvis may reflect paralytic ileus. No definite intestinal obstructive pattern. Slight pelvic free fluid. Normal-appearing urinary bladder and rectum. Uterus not visible. No adnexal abnormality. Normal-appearing sigmoid colon. Normal-appearing cecum and terminal ileum. Appendix not visible. No pericecal inflammation. Nonspecific mural thickening in splenic flexure and descending colon. No definite adjacent fat stranding or diverticulosis in this region. IMPRESSION: Mural thickening in splenic flexure and descending colon may be edema, inflammation, or nonspecific colitis. Abdomen and pelvic slight free fluid may be reactive Cardiomegaly without pericardial effusion. Slight fat stranding in the abdominal wall and mesentery may reflect mild anasarca
[2017-09-22 14:39] LABS: Bacteria,Urine 1+ /HPF (Negative); Bilirubin,Urine NEG (Negative); Blood,Urine MOD (Negative); Color,Urine Yellow (Yellow); Mucus,Urine FEW /HPF
[2017-09-22] MEDS ORDERED: MACROBID PO ONE (14:56)
[2017-09-22] MEDS ORDERED: LEVAQUIN PO ONE (16:37)
[2017-09-22] MEDS ORDERED: ZOFRAN ODT ONE (17:28)
[2017-09-22 17:34] VITALS: BP 154/87
== END 2017-09-22 17:33 | disposition admitted as inpatient to this hospital (09) ==
LOC: ED 06:28
DX: R07.89 Other chest pain (principal); K52.9 Noninfective gastroenteritis and colitis, unspecified; N39.0 Urinary tract infection, site not specified; E11.9 Type 2 diabetes mellitus without complications; I25.10 Atherosclerotic heart disease of native coronary artery without angina pectoris; I11.0 Hypertensive heart disease with heart failure; I50.9 Heart failure, unspecified; Z90.710 Acquired absence of both cervix and uterus; Z88.5 Allergy status to narcotic agent; Z95.810 Presence of automatic (implantable) cardiac defibrillator; Z95.818 Presence of other cardiac implants and grafts; Z86.718 Personal history of other venous thrombosis and embolism; Z79.01 Long term (current) use of anticoagulants
CPT/HCPCS: 36415; 36569; 71046; 74177; 80048; 80061; 80074; 81001; 82271; 83690; 84484; 85025; 85610; 85730; 87086; 93005; 93010; 96361; 96374; 96375; 99285; J1885; J2270; J2405; J7040; Q9967; Q0162

== ENCOUNTER 2017-10-29 09:26 | Inpatient (IN) | payer MEDICAID ==
[2017-10-29] MEDS ORDERED: ASPIRIN PO ONE (09:43)
[2017-10-29 11:12] LABS: Basophils # (Auto) 0.1 K/mm3 (0.0-0.1); Eosinophils # (Auto) 0.1 K/mm3 (0.0-0.4); Eosinophils % (Auto) 1.2 % (0.0-4.3); Hematocrit 35.1 % (30.3-42.9); Hemoglobin 10.9 gm/dl (10.1-14.3); Lymphocytes # (Auto) 1.6 K/mm3 (1.2-5.4); Lymphocytes % (Auto) 21.1 % (13.4-35.0); Mean Corpuscular HGB Conc 31 % (30-34); Mean Corpuscular Hemoglobin 28 pg (28-32); Mean Corpuscular Volume 89 fl (79-97); Monocytes # (Auto) 0.8 K/mm3 (0.0-0.8); Monocytes % (Auto) 10.7 % (0.0-7.3); Platelet Count 199 K/mm3 (140-440); Red Blood Count 3.96 M/mm3 (3.65-5.03)
[2017-10-29 11:17] LABS: Red Cell Distribution Width 20.3 % (13.2-15.2)
[2017-10-29 11:26] LABS: BUN/Creatinine Ratio 27; Blood Urea Nitrogen 24 mg/dL (7-17); Calcium 8.7 mg/dL (8.4-10.2); Hemolysis Index 26
--- NOTE | 2017-10-29 13:22 | Emergency Department Report ---
ED Chest Pain HPI - General Chief Complaint: Chest Pain Stated Complaint: CHEST PAIN Time Seen by Provider: 10/29/17 12:20 Source: patient, EMS Mode of arrival: Ambulatory Limitations: No Limitations - History of Present Illness Initial Comments: Patient presented with chest pain which has been on and off for a month. Patient refused nitroglycerin SL from EMS. MD Complaint: chest pain -: month(s) (1) Onset: during rest Pain Location: substernal, left chest Pain Radiation: none Severity: moderate Severity scale (0 -10): 7 Quality: aching, dull Consistency: constant Improves With: nothing Worsens With: nothing re: dyspnea. denies: nausea, vomting, diaphoresis Other Symptoms: denies: fever Treatments Prior to Arrival: aspirin (325 mg) Aspirin use within the Past 7 Days: (1) Yes - Related Data On Oral Contraceptives: No Home Medications Medication Instructions Recorded Confirmed Last Taken Acetaminophen [Acetaminophen ER] 650 mg PO Q4H 06/14/17 10/29/17 Unknown Clopidogrel [Plavix] 75 mg PO QDAY 06/14/17 10/29/17 Unknown ISOSORBIDE MONOnitrate [Imdur ER] 60 mg PO QDAY 06/14/17 10/29/17 Unknown Carvedilol [Coreg] 12.5 mg PO BID 07/12/17 10/29/17 Unknown Rosuvastatin Calcium [Crestor] 40 mg PO DAILY 07/12/17 10/29/17 Unknown Previous Rx's Medication Instructions Recorded Last Taken Type Aspirin EC [Aspirin Enteric Coated 81 mg PO QDAY #30 tablet 06/15/17 Unknown Rx TAB] Furosemide [Lasix TAB] 20 mg PO QDAY #30 tablet 08/09/17 Unknown Rx Insulin Glargine [Lantus VIAL] 5 units SUB-Q QAMDIAB 30 Days #30 08/09/17 Unknown Rx units Potassium Chloride [K-Dur] 10 meq PO QDAY #60 tablet 08/09/17 Unknown Rx Rivaroxaban [Xarelto] 15 mg PO QPM #30 tablet 08/09/17 Unknown Rx HYDROcodone/APAP 7.5-325 [[place] 1 each PO Q6HR PRN #10 tablet 09/10/17 Unknown Rx 7.5/325] Ondansetron [Zofran Odt] 4 mg PO Q8HR PRN #20 tab.rapdis 09/22/17 Unknown Rx traMADol [Ultram 50 MG tab] 50 mg PO Q6HR PRN #20 tablet 09/22/17 Unknown Rx Allergies Allergy/AdvReac Type Severity Reaction Status Date / Time codeine Allergy Hives Verified 07/12/17 07:54 Heart Score - HEART Score History: Moderately suspicious EKG: Non-specific Age: 45-65 Risk factors: 1-2 risk factors Troponin: < normal limit HEART Score: 4 - Critical Actions Critical Actions: 4-6 pts:12-16.6% risk of adverse cardiac event. Should be admitted ED Review of Systems ROS: Stated complaint: CHEST PAIN Other details as noted in HPI Comment: All other systems reviewed and negative Constitutional: denies: chills, fever Eyes: denies: eye pain ENT: denies: ear pain, dental pain Respiratory: shortness of breath. denies: cough Cardiovascular: denies: chest pain, palpitations Endocrine: no symptoms reported Gastrointestinal: denies: abdominal pain, nausea, vomiting, diarrhea Genitourinary: denies: urgency, frequency Musculoskeletal: denies: back pain, joint swelling Skin: denies: rash, change in color Neurological: denies: headache, weakness, numbness, paresthesias Psychiatric: denies: anxiety, depression Hematological/Lymphatic: denies: easy bleeding, easy bruising ED Past Medical Hx - Past Medical History Hx Hypertension: Yes Hx Heart Attack/AMI: No Hx Congestive Heart Failure: Yes Hx Diabetes: Yes Hx Deep Vein Thrombosis: Yes Hx Asthma: No Hx COPD: No Hx Dementia: No Hx HIV: No - Surgical History Hx Coronary Stent: Yes (8 stents) Additional Surgical History: hysterectomy - Social History Smoking Status: Never Smoker - Medications Home Medications: Home Medications Medication Instructions Recorded Confirmed Last Taken Type Acetaminophen [Acetaminophen ER] 650 mg PO Q4H 06/14/17 10/29/17 Unknown History Clopidogrel [Plavix] 75 mg PO QDAY 06/14/17 10/29/17 Unknown History ISOSORBIDE MONOnitrate [Imdur ER] 60 mg PO QDAY 06/14/17 10/29/17 Unknown History Aspirin EC [Aspirin Enteric Coated 81 mg PO QDAY #30 tablet 06/15/17 10/29/17 Unknown Rx TAB] Carvedilol [Coreg] 12.5 mg PO BID 07/12/17 10/29/17 Unknown History Rosuvastatin Calcium [Crestor] 40 mg PO DAILY 07/12/17 10/29/17 Unknown History Furosemide [Lasix TAB] 20 mg PO QDAY #30 tablet 08/09/17 10/29/17 Unknown Rx Insulin Glargine [Lantus VIAL] 5 units SUB-Q QAMDIAB 30 Days #30 08/09/17 Unknown Rx units Potassium Chloride [K-Dur] 10 meq PO QDAY #60 tablet 08/09/17 10/29/17 Unknown Rx Rivaroxaban [Xarelto] 15 mg PO QPM #30 tablet 08/09/17 10/29/17 Unknown Rx HYDROcodone/APAP 7.5-325 [[place] 1 each PO Q6HR PRN #10 tablet 09/10/17 10/29/17 Unknown Rx 7.5/325] Ondansetron [Zofran Odt] 4 mg PO Q8HR PRN #20 tab.rapdis 09/22/17 10/29/17 Unknown Rx traMADol [Ultram 50 MG tab] 50 mg PO Q6HR PRN #20 tablet 09/22/17 10/29/17 Unknown Rx ED Physical Exam - General Limitations: No Limitations General appearance: alert, in no apparent distress - Head Head exam: Present: atraumatic, normocephalic, normal inspection - Eye Eye exam: Present: normal appearance, PERRL, EOMI Pupils: Present: normal accommodation - ENT ENT exam: Present: normal exam, normal orophraynx, mucous membranes moist - Neck Neck exam: Present: normal inspection, full ROM. Absent: tenderness - Respiratory Respiratory exam: Present: normal lung sounds bilaterally. Absent: respiratory distress, wheezes, rhonchi - Cardiovascular Cardiovascular Exam: Present: regular rate, normal rhythm, normal heart sounds - GI/Abdominal GI/Abdominal exam: Present: soft, normal bowel sounds. Absent: distended, tenderness, guarding, rebound - Extremities Exam Extremities exam: Present: normal inspection, full ROM, normal capillary refill - Back Exam Back exam: Present: normal inspection, full ROM. Absent: tenderness - Neurological Exam Neurological exam: Present: alert, oriented X3, CN II-XII intact - Psychiatric Psychiatric exam: Present: normal affect, normal mood - Skin Skin exam: Present: warm, dry, intact, normal color. Absent: rash ED Course Vital Signs 10/29/17 09:38 Pulse Rate 85 Respiratory 16 Rate Blood Pressure 160/107 [Left] O2 Sat by Pulse 100 Oximetry - Reevaluation(s) Reevaluation #1: 10/29/17 13:50 Patient care was discussed with the hospitalist on-call Dr. Miranda He will admit patient to the hospital for further evaluation and management. GISELLE score - Giselle Score Age > 65: (0) No Aspirin use within the Past 7 Days: (1) Yes 3 or more CAD Risk Factors: (1) Yes 2 or more Angina events in past 24 hrs: (1) Yes Known CAD with more than 50% Stenosis: (1) Yes Elevated Cardiac Markers: (1) Yes ST Deviation Greater than 0.5mm: (0) No GISELLE Score: 5 ED Medical Decision Making - Lab Data Result diagrams: 10/29/17 10:48 10/29/17 10:48 - EKG Data -: EKG Interpreted by Me EKG shows normal: sinus rhythm Rate: normal (82) - EKG Data When compared to previous EKG there are: no significant change Interpretation: unchanged when compared t (09/22/2017), nonspecific ST-T wave karime, other (Q wave V1, V2 & V3.) - Radiology Data Radiology results: report reviewed, image reviewed - Medical Decision Making Chest Pain. Critical care attestation.: If time is entered above; I have spent that time in minutes in the direct care of this critically ill patient, excluding procedure time. ED Disposition Clinical Impression: Chest pain Qualifiers: Chest pain type: unspecified Qualified Code(s): R07.9 - Chest pain, unspecified CHF exacerbation Qualifiers: Heart failure type: unspecified Qualified Code(s): I50.9 - Heart failure, unspecified Hypertension Qualifiers: Hypertension type: unspecified Qualified Code(s): I10 - Essential (primary) hypertension Disposition: OP ADMIT IP TO THIS HOSP Is pt being admited?: Yes Does the pt Need Aspirin: Yes Condition: Stable Instructions: Chest Pain (ED), Hypertension (ED) Referrals: PRIMARY CARE, [Primary Care Provider] - 3-5 Days Time of Disposition: 13:50
--- NOTE | 2017-10-29 13:23 | XRay Report ---
Single view chest: Compared to 09/22/17. History: Chest pain. Findings: Cardiomegaly. Trachea is midline. Stable pacemaker. Mild pulmonary venous congestion. No consolidation or pleural effusion. Impression: Cardiomegaly with mild pulmonary venous congestion.
[2017-10-29] MEDS ORDERED: ASPIRIN ONE (13:25)
[2017-10-29 13:35] LABS: Lipase 84 units/L (13-60)
[2017-10-29 13:42] LABS: Partial Thromboplastin Time 30.3 Sec. (24.2-36.6)
[2017-10-29] MEDS ORDERED: LASIX IV ONE (13:48)
--- NOTE | 2017-10-29 14:05 | History and Physical Report ---
History of Present Illness Chief complaint: My chest hurts History of present illness: 57 YO Female with HTN, CHF, DM, HLD, DVT on Therapeutic Anticoagulation, CAD S/ P Stent Placement presents to ED for evaluation. Pt states that she has experienced pain in her chest for the past 1 month with acutely worsening symptoms over the past 1 day. Pt states that her pain is 7/10, substernal, nonradiating, localized to left chest, crushing in nature, constant, not worsened with exertion, not relieved with rest. Pt denies fever, chills, palpitations, NVD, syncope, shortness of breath, productive cough, recent ill contacts, unilateral leg swelling, calf pain. Pt seen and evaluated in ED and found to have symptoms consistent with ACS as well as CHF. Pt admitted to telemetry. Cardiology consulted in ED. Past History Past Medical History: CAD, diabetes, heart failure, hypertension, hyperlipidemia Past Surgical History: hysterectomy, Other (cardiac stant placement) Social history: Family history: hypertension Medications and Allergies Allergies Allergy/AdvReac Type Severity Reaction Status Date / Time codeine Allergy Hives Verified 07/12/17 07:54 Home Medications Medication Instructions Recorded Confirmed Last Taken Type Acetaminophen [Acetaminophen ER] 650 mg PO Q4H 06/14/17 10/29/17 Unknown History Clopidogrel [Plavix] 75 mg PO QDAY 06/14/17 10/29/17 Unknown History ISOSORBIDE MONOnitrate [Imdur ER] 60 mg PO QDAY 06/14/17 10/29/17 Unknown History Aspirin EC [Aspirin Enteric Coated 81 mg PO QDAY #30 tablet 06/15/17 10/29/17 Unknown Rx TAB] Carvedilol [Coreg] 12.5 mg PO BID 07/12/17 10/29/17 Unknown History Rosuvastatin Calcium [Crestor] 40 mg PO DAILY 07/12/17 10/29/17 Unknown History Furosemide [Lasix TAB] 20 mg PO QDAY #30 tablet 08/09/17 10/29/17 Unknown Rx Insulin Glargine [Lantus VIAL] 5 units SUB-Q QAMDIAB 30 Days #30 08/09/17 Unknown Rx units Potassium Chloride [K-Dur] 10 meq PO QDAY #60 tablet 08/09/17 10/29/17 Unknown Rx Rivaroxaban [Xarelto] 15 mg PO QPM #30 tablet 08/09/17 10/29/17 Unknown Rx HYDROcodone/APAP 7.5-325 [[place] 1 each PO Q6HR PRN #10 tablet 09/10/17 10/29/17 Unknown Rx 7.5/325] Ondansetron [Zofran Odt] 4 mg PO Q8HR PRN #20 tab.rapdis 09/22/17 10/29/17 Unknown Rx traMADol [Ultram 50 MG tab] 50 mg PO Q6HR PRN #20 tablet 09/22/17 10/29/17 Unknown Rx Review of Systems Constitutional: no weight loss, no weight gain, no fever, no chills Ears, nose, mouth and throat: no ear pain, no ear discharge, no tinnitis, no decreased hearing, no nose pain, no nasal congestion Breasts: no change in shape, no swelling, no mass Cardiovascular: chest pain, no palpitations, no edema, no syncope, no lightheadedness, no shortness of breath, no dyspnea on exertion, no claudication Respiratory: no cough, no cough with sputum, no excessive sputum, no hemoptysis , no shortness of breath Gastrointestinal: no abdominal pain, no nausea, no vomiting, no diarrhea, no constipation Genitourinary Female: no pelvic pain, no flank pain, no menorrhagia Rectal: no pain, no incontinence, no bleeding Musculoskeletal: no neck stiffness, no neck pain, no shooting arm pain, no arm numbness/tingling, no low back pain, no shooting leg pain Integumentary: no rash, no pruritis, no redness, no sores, no wounds Neurological: no paralysis, no weakness, no parathesias, no numbness, no tingling, no syncope Psychiatric: no anxiety, no memory loss, no change in sleep habits, no sleep disturbances, no insomnia, no hypersomnia, no change in appetite, no change in libido Endocrine: no cold intolerance, no heat intolerance, no polyphagia, no excessive thirst, no polydipsia, no polyuria Hematologic/Lymphatic: no easy bruising, no easy bleeding, no lymphadenopathy, no lymphedema Allergic/Immunologic: no urticaria, no allergic rhinitis, no wheezing, no persistent infections, no anaphylaxis, no angioedema Exam - Constitutional Vitals: Temp Pulse Resp BP Pulse Ox 98.3 F 87 12 134/72 99 10/29/17 13:59 10/29/17 13:59 10/29/17 13:59 10/29/17 13:59 10/29/17 13:59 General appearance: Present: mild distress - EENT Eyes: Present: PERRL ENT: hearing intact, clear oral mucosa - Neck Neck: Present: supple, normal ROM - Respiratory Respiratory effort: normal Respiratory: bilateral: diminished - Cardiovascular Heart Sounds: Present: S1 & S2. Absent: rub, click - Extremities Extremities: pulses symmetrical, No edema Peripheral Pulses: within normal limits - Abdominal General gastrointestinal: Present: soft, non-tender, non-distended, normal bowel sounds Female genitourinary: Present: normal - Integumentary Integumentary: Present: clear, warm, dry - Musculoskeletal Musculoskeletal: gait normal, strength equal bilaterally - Psychiatric Psychiatric: appropriate mood/affect, intact judgment & insight - Neurologic Neurologic: CNII-XII intact, moves all extremities Results - Labs CBC & Chem 7: 10/29/17 10:48 10/29/17 10:48 Labs: Abnormal lab results 10/29/17 10/29/17 10/29/17 Range/Units 10:48 10:48 12:58 RDW 20.3 H (13.2-15.2) % [place] % (Auto) 10.7 H (0.0-7.3) % D-Dimer (0-234) ng/mlDDU Sodium 135 L (137-145) mmol/L Chloride 93.1 L (98-107) mmol/L BUN 24 H (7-17) mg/dL Glucose 197 H (65-100) mg/dL NT-Pro-B Natriuret Pep 6676 H (0-900) pg/mL Lipase 84 H (13-60) units/L 10/29/17 Range/Units 13:08 RDW (13.2-15.2) % [place] % (Auto) (0.0-7.3) % D-Dimer 324.52 H (0-234) ng/mlDDU Sodium (137-145) mmol/L Chloride (98-107) mmol/L BUN (7-17) mg/dL Glucose (65-100) mg/dL NT-Pro-B Natriuret Pep (0-900) pg/mL Lipase (13-60) units/L Assessment and Plan - Patient Problems (1) Acute exacerbation of CHF (congestive heart failure) Current Visit: Yes Status: Acute Qualifiers: Heart failure type: unspecified Qualified Code(s): I50.9 - Heart failure, unspecified Plan to address problem: Strict I/O, Monitor uop q shift, daily weight, supplemental oxygen, D dimer, Chest X ray, Cardiology consulted in ED, CTA chest to evaluate for PE, (2) ACS (acute coronary syndrome) Current Visit: Yes Status: Acute Plan to address problem: Serial cardiac enzymes, EKG, admit to telemetry, Morphine, supplemental oxygen, nitro, aspirin (3) Hyperlipidemia Current Visit: No Status: Chronic Qualifiers: Hyperlipidemia type: mixed hyperlipidemia Qualified Code(s): E78.2 - Mixed hyperlipidemia Plan to address problem: lipid panel, low cholesterol diet, (4) Hypertension Current Visit: No Status: Chronic Qualifiers: Hypertension type: essential hypertension Qualified Code(s): I10 - Essential (primary) hypertension Plan to address problem: monitor BP q shift, supportive care. (5) DVT prophylaxis Current Visit: No Status: Acute Plan to address problem: SCD to BLE while in bed.
[2017-10-29] MEDS ORDERED: SODIUM CHLORIDE FLUSH SYRINGE 10 ML IV PRN (14:06)
[2017-10-29] MEDS ORDERED: TYLENOL PO PRN (14:06)
[2017-10-29] MEDS ORDERED: ZOFRAN IV PRN (14:06)
[2017-10-29] MEDS ORDERED: PROVENTIL IH PRN (14:06)
[2017-10-29] MEDS ORDERED: ZOFRAN ODT PO PRN (14:08)
[2017-10-29] MEDS ORDERED: ULTRAM PO PRN (14:08)
[2017-10-29] MEDS ORDERED: NON-FORMULARY (Acetaminophen [Acetaminophen Er] 650 MG) PO SCH (14:15)
[2017-10-29] MEDS ORDERED: LASIX ONE (19:37)
[2017-10-29] MEDS: LASIX IV SCH (19:46)
[2017-10-29] MEDS: XARELTO PO SCH ×2 (19:50→20:01)
[2017-10-29 20:31] LABS: Free T4 (Free Thyroxine) 1.55 ng/dL (0.76-1.46)
[2017-10-29] MEDS: NORCO 7.5/325 PO PRN (20:59)
[2017-10-29] MEDS: COREG PO SCH (20:59)
[2017-10-29] MEDS: PEPCID PO SCH (20:59)
[2017-10-29] MEDS: SODIUM CHLORIDE FLUSH SYRINGE 10 ML IV SCH (21:01)
[2017-10-30] MEDS: NORCO 7.5/325 PO PRN ×2 (05:57→20:28)
[2017-10-30] MEDS: LASIX IV SCH ×2 (05:57→20:28)
[2017-10-30 08:18] LABS: Bilirubin,Urine NEG (Negative); Blood,Urine NEG (Negative); Color,Urine Straw (Yellow); Mucus,Urine FEW /HPF; Protein,Urine <15 mg/dL mg/dL (Negative); Urobilinogen,Urine < 2.0 mg/dL (<2.0)
[2017-10-30 08:24] LABS: Amphetamine Screen,Urine PRESUMPTIVE NEGATIVE; Benzodiazepines Screen,Urine PRESUMPTIVE NEGATIVE; Cannabinoid Screen,Urine PRESUMPTIVE NEGATIVE; Cocaine Screen,Urine PRESUMPTIVE NEGATIVE; Methadone Screen,Urine PRESUMPTIVE NEGATIVE; Opiate Screen,Urine PRESUMPTIVE NEGATIVE
[2017-10-30] MEDS ORDERED: NON-FORMULARY (Rosuvastatin Calcium [Crestor] 40 MG) PO SCH (10:00)
[2017-10-30] MEDS: LANTUS SUB-Q SCH (10:07)
[2017-10-30] MEDS: SODIUM CHLORIDE FLUSH SYRINGE 10 ML IV SCH ×2 (10:10→21:51)
[2017-10-30] MEDS: COREG PO SCH ×2 (11:45→21:51)
[2017-10-30] MEDS: PLAVIX PO SCH (12:03)
--- NOTE | 2017-10-30 12:03 | Consultation ---
History of Present Illness Consult date: 10/30/17 Requesting physician: SHIVA DUNHAM Consult reason: chest pain History of present illness: This is a 57-year-old female with history of coronary disease AICD hypertension diabetes hypercoagulable state presents with chest pain for 1 day sharp in nature is currently chest pain-free patient also has shortness of breath stabilized flat this morning denies any nausea and vomiting Pharmacologic MPI stress test done at [facility] on 06/04/2017 showed fixed defect in the basal inferolateral and mid inferolateral location, EF 30-39%, no significant ischemia, no significant change from stress test done 10/2015. LHC done 11/2016 showed mild luminal irregularities throughout the left and right coronary system with no high grade lesions. ~Widely patent LAD/D2 stents, Severe LV dysfunction with a LVEF of 20% with severe MR 4+. Echo done 11/2016 showed LV cavity is severely dilated, LV EF is severely decreased at 30.5%, Regional LV wall motion abnormalities, RV systolic function is moderately reduced, Mild AR, Severe MR, Moderate pulmonary hypertension. Past History Past Medical History: CAD, diabetes, heart failure, hypertension, hyperlipidemia Past Surgical History: hysterectomy, Other (cardiac stant placement) Social history: Family history: hypertension Medications and Allergies Allergies Allergy/AdvReac Type Severity Reaction Status Date / Time codeine Allergy Hives Verified 07/12/17 07:54 Home Medications Medication Instructions Recorded Confirmed Last Taken Type Acetaminophen [Acetaminophen ER] 650 mg PO Q4H 06/14/17 10/29/17 Unknown History Clopidogrel [Plavix] 75 mg PO QDAY 06/14/17 10/29/17 Unknown History ISOSORBIDE MONOnitrate [Imdur ER] 60 mg PO QDAY 06/14/17 10/29/17 Unknown History Aspirin EC [Aspirin Enteric Coated 81 mg PO QDAY #30 tablet 06/15/17 10/29/17 Unknown Rx TAB] Carvedilol [Coreg] 12.5 mg PO BID 07/12/17 10/29/17 Unknown History Rosuvastatin Calcium [Crestor] 40 mg PO DAILY 07/12/17 10/29/17 Unknown History Furosemide [Lasix TAB] 20 mg PO QDAY #30 tablet 08/09/17 10/29/17 Unknown Rx Insulin Glargine [Lantus VIAL] 5 units SUB-Q QAMDIAB 30 Days #30 08/09/17 Unknown Rx units Potassium Chloride [K-Dur] 10 meq PO QDAY #60 tablet 08/09/17 10/29/17 Unknown Rx Rivaroxaban [Xarelto] 15 mg PO QPM #30 tablet 08/09/17 10/29/17 Unknown Rx HYDROcodone/APAP 7.5-325 [[place] 1 each PO Q6HR PRN #10 tablet 09/10/17 10/29/17 Unknown Rx 7.5/325] Ondansetron [Zofran Odt] 4 mg PO Q8HR PRN #20 tab.rapdis 09/22/17 10/29/17 Unknown Rx traMADol [Ultram 50 MG tab] 50 mg PO Q6HR PRN #20 tablet 09/22/17 10/29/17 Unknown Rx Active Meds: Active Medications Acetaminophen (Tylenol) 650 mg PO Q4H PRN PRN Reason: Pain MILD(1-3)/Fever >100.5/FISCHER Acetaminophen/Hydrocodone Bitart ([place] 7.5/325) 1 each PO Q6HR PRN PRN Reason: Pain Last Admin: 10/30/17 05:57 Dose: 1 each Albuterol (Proventil) 2.5 mg IH Q4HRT PRN PRN Reason: Shortness Of Breath Aspirin (Halfprin Ec) 81 mg PO QDAY [facility] Atorvastatin Calcium (Lipitor) 40 mg PO QHS [facility] Last Admin: 10/29/17 20:59 Dose: 40 mg Carvedilol (Coreg) 12.5 mg PO BID [facility] Last Admin: 10/29/17 20:59 Dose: 12.5 mg Clopidogrel Bisulfate (Plavix) 75 mg PO QDAY [facility] Famotidine (Pepcid) 20 mg PO BID [facility] Last Admin: 10/29/17 20:59 Dose: 20 mg Furosemide (Lasix) 40 mg IV BID@0600,1800 [facility] Last Admin: 10/30/17 05:57 Dose: 40 mg Insulin Glargine (Lantus) 5 units SUB-Q QAMDIAB [facility] Isosorbide Mononitrate (Imdur) 60 mg PO QDAY [facility] Ondansetron HCl (Zofran) 4 mg IV Q8H PRN PRN Reason: Nausea And Vomiting Ondansetron HCl (Zofran Odt) 4 mg PO Q8HR PRN PRN Reason: Nausea And Vomiting Potassium Chloride (K-Dur) 10 meq PO QDAY EVER Rivaroxaban (Xarelto) 15 mg PO QPM [facility]; Protocol Last Admin: 10/29/17 20:01 Dose: 15 mg Sodium Chloride (Sodium Chloride Flush Syringe 10 Ml) 10 ml IV BID [facility] Last Admin: 10/29/17 21:01 Dose: 10 ml Sodium Chloride (Sodium Chloride Flush Syringe 10 Ml) 10 ml IV PRN PRN PRN Reason: LINE FLUSH Tramadol HCl (Ultram) 50 mg PO Q6HR PRN PRN Reason: Pain Last Admin: 10/29/17 15:41 Dose: 50 mg Review of Systems All systems: negative (hpi) Physical Examination Vital Signs Pulse Resp BP Pulse Ox 85 16 160/107 100 10/29/17 09:38 10/29/17 09:38 10/29/17 09:38 10/29/17 09:38 General appearance: no acute distress, well-nourished HEENT: Positive: PERRL, Mucus Membranes Moist Neck: Positive: neck supple, trachea midline Cardiac: Positive: Reg Rate and Rhythm, S1/S2. Negative: Audible Murmur Lungs: Positive: clear to auscultation, Normal Breath Sounds Neuro: Positive: Grossly Intact Abdomen: Positive: Soft, Active Bowel Sounds. Negative: Tender, Distended Female genitourinary: deferred Skin: Positive: Clear Incision: Cardiac Cath Site Musculoskeletal: No Pain, Normal Range of Motion Extremities: Present: normal. Absent: edema Results 10/29/17 10:48 10/29/17 10:48 Coagulation 10/29/17 Range/Units 13:08 PT 13.7 (12.2-14.9) Sec. INR 1.00 (0.87-1.13) APTT 30.3 (24.2-36.6) Sec. - Imaging and Cardiology Stress echo: other (Pharmacologic MPI stress test done at [facility] on 06/04/2017 showed fixed defect in the basal inferolateral and mid inferolateral location, EF 30-39%, no significant ischemia, no significant change from stress test done 10/2015. ) Echo: report reviewed (07/2017 EF 30-35% with severe palmar hypertension moderate aortic stenosis with mild aortic regurgitation moderate severe tricuspid regurgitation moderate severe mitral regurgitation) Cardiac cath: report reviewed (C done 11/2016 showed mild luminal irregularities throughout the left and right coronary system with no high grade lesions. ~Widely patent LAD/D2 stents, Severe LV dysfunction with a LVEF of 20% with severe MR 4+.) - EKG Interpretation EKG: interpreted by ERMD Assessment and Plan chest pain mi r/o acute on chronic systolic heart failure aicd htn chol dm rec: change to po lasix, enzymes negative recent stress test negative, if pt ambulates may discharge from [facility] point of view
[2017-10-30] MEDS: PEPCID PO SCH ×2 (12:04→21:50)
[2017-10-30] MEDS: K-DUR PO SCH (12:05)
[2017-10-30] MEDS: HALFPRIN EC PO SCH (12:05)
[2017-10-30] MEDS: IMDUR PO SCH (12:06)
--- NOTE | 2017-10-30 13:11 | Progress Note ---
Assessment and Plan Assessment and plan: --Acute on chronic systolic congestive heart failure; EF 30-35% continue anti-failure medications,Input output monitoring, low sodium diet, fluid restriction --History of AICD; stable --Acute coronary syndrome; continue current cardiac medications Cardiology following --Dyslipidemia; continue lipid-lowering medications --History of PE; continue Xeralto --2 diabetes mellitus; Accu-Chek sliding scale coverage and ADA diet and insulin, A1c 10.9 --Hypertension; moderate control, continue current antihypertensives and when necessary medications --DVT prophylaxis; on Xeralto History Interval history: Patient seen and examined medical records reviewed Feels better no new complaints Denies chest pain or shortness of breath Blood sugars are uncontrolled Alert awake oriented 3 Vital signs reviewed Hospitalist Physical - Constitutional Vitals: Temp Pulse Resp BP Pulse Ox 97.3 F L 66 18 152/82 99 10/30/17 08:17 10/30/17 08:17 10/30/17 08:17 10/30/17 08:17 10/30/17 08:17 General appearance: Present: no acute distress, well-nourished - EENT Eyes: Present: PERRL, EOM intact - Neck Neck: Present: supple, normal ROM - Respiratory Respiratory effort: normal Respiratory: bilateral: diminished, negative: rales, rhonchi, wheezing - Cardiovascular Rhythm: regular Heart Sounds: Present: S1 & S2 - Extremities Extremities: no ischemia, No edema - Abdominal General gastrointestinal: soft, non-tender, non-distended, normal bowel sounds - Integumentary Integumentary: Present: clear, warm - Psychiatric Psychiatric: appropriate mood/affect, cooperative - Neurologic Neurologic: CNII-XII intact, moves all extremities Results - Labs CBC & Chem 7: 10/29/17 10:48 10/29/17 10:48 Labs: Laboratory Last Values WBC 7.4 K/mm3 (4.5-11.0) 10/29/17 10:48 RBC 3.96 M/mm3 (3.65-5.03) 10/29/17 10:48 Hgb 10.9 gm/dl (10.1-14.3) 10/29/17 10:48 Hct 35.1 % (30.3-42.9) 10/29/17 10:48 MCV 89 fl (79-97) 10/29/17 10:48 MCH 28 pg (28-32) 10/29/17 10:48 MCHC 31 % (30-34) 10/29/17 10:48 RDW 20.3 % (13.2-15.2) H 10/29/17 10:48 Plt Count 199 K/mm3 (140-440) 10/29/17 10:48 Lymph % (Auto) 21.1 % (13.4-35.0) 10/29/17 10:48 [place] % (Auto) 10.7 % (0.0-7.3) H 10/29/17 10:48 Eos % (Auto) 1.2 % (0.0-4.3) 10/29/17 10:48 Baso % (Auto) 1.0 % (0.0-1.8) 10/29/17 10:48 Lymph # 1.6 K/mm3 (1.2-5.4) 10/29/17 10:48 [place] # 0.8 K/mm3 (0.0-0.8) 10/29/17 10:48 Eos # 0.1 K/mm3 (0.0-0.4) 10/29/17 10:48 Baso # 0.1 K/mm3 (0.0-0.1) 10/29/17 10:48 Seg Neutrophils % 66.0 % (40.0-70.0) 10/29/17 10:48 Seg Neutrophils # 4.9 K/mm3 (1.8-7.7) 10/29/17 10:48 PT 13.7 Sec. (12.2-14.9) 10/29/17 13:08 INR 1.00 (0.87-1.13) 10/29/17 13:08 APTT 30.3 Sec. (24.2-36.6) 10/29/17 13:08 D-Dimer 324.52 ng/mlDDU (0-234) H 10/29/17 13:08 Sodium 135 mmol/L (137-145) L 10/29/17 10:48 Potassium 3.7 mmol/L (3.6-5.0) 10/29/17 10:48 Chloride 93.1 mmol/L (98-107) L 10/29/17 10:48 Carbon Dioxide 24 mmol/L (22-30) 10/29/17 10:48 Anion Gap 22 mmol/L 10/29/17 10:48 BUN 24 mg/dL (7-17) H 10/29/17 10:48 Creatinine 0.9 mg/dL (0.7-1.2) 10/29/17 10:48 Estimated GFR > 60 ml/min 10/29/17 10:48 BUN/Creatinine Ratio 27 % 10/29/17 10:48 Glucose 197 mg/dL (65-100) H 10/29/17 10:48 POC Glucose 384 (70-105) H 10/30/17 11:59 Calcium 8.7 mg/dL (8.4-10.2) 10/29/17 10:48 Total Creatine Kinase 101 units/L (30-135) 10/29/17 12:58 Troponin T < 0.010 ng/mL (0.00-0.029) 10/29/17 19:39 NT-Pro-B Natriuret Pep 6676 pg/mL (0-900) H 10/29/17 12:58 Lipase 84 units/L (13-60) H 10/29/17 12:58 TSH 0.749 mlU/mL (0.270-4.200) 10/29/17 19:39 Free T4 1.55 ng/dL (0.76-1.46) H 10/29/17 19:39 Urine Color Straw (Yellow) 10/30/17 07:19 Urine Turbidity Clear (Clear) 10/30/17 07:19 Urine pH 7.0 (5.0-7.0) 10/30/17 07:19 Ur Specific [place] 1.016 (1.003-1.030) 10/30/17 07:19 Urine Protein <15 mg/dl mg/dL (Negative) 10/30/17 07:19 Urine Glucose (UA) >=500 mg/dL (Negative) 10/30/17 07:19 Urine Ketones Neg mg/dL (Negative) 10/30/17 07:19 Urine Blood Neg (Negative) 10/30/17 07:19 Urine Nitrite Neg (Negative) 10/30/17 07:19 Urine Bilirubin Neg (Negative) 10/30/17 07:19 Urine Urobilinogen < 2.0 mg/dL (<2.0) 10/30/17 07:19 Ur Leukocyte Esterase Tr (Negative) 10/30/17 07:19 Urine WBC (Auto) 1.0 /HPF (0.0-6.0) 10/30/17 07:19 Urine RBC (Auto) 1.0 /HPF (0.0-6.0) 10/30/17 07:19 U Epithel Cells (Auto) < 1.0 /HPF (0-13.0) 10/30/17 07:19 Urine Mucus Few /HPF 10/30/17 07:19 Urine Opiates Screen Presumptive negative 10/30/17 07:19 Urine Methadone Screen Presumptive negative 10/30/17 07:19 Ur Barbiturates Screen Presumptive negative 10/30/17 07:19 Ur Phencyclidine Scrn Presumptive negative 10/30/17 07:19 Ur Amphetamines Screen Presumptive negative 10/30/17 07:19 U Benzodiazepines Scrn Presumptive negative 10/30/17 07:19 Urine Cocaine Screen Presumptive negative 10/30/17 07:19 U Marijuana (THC) Screen Presumptive negative 10/30/17 07:19 Drugs of Abuse Note Disclamer 10/30/17 07:19
[2017-10-30] MEDS: HumaLOG SUB-Q SCH (16:27)
[2017-10-30] MEDS: GLUCOPHAGE PO SCH (20:28)
[2017-10-30] MEDS: XARELTO PO SCH (20:29)
[2017-10-31] MEDS: LASIX IV SCH (05:20)
[2017-10-31] MEDS: NORCO 7.5/325 PO PRN (05:20)
[2017-10-31] MEDS: LANTUS SUB-Q SCH (07:52)
[2017-10-31] MEDS: HumaLOG SUB-Q SCH ×3 (07:52→18:25)
--- NOTE | 2017-10-31 09:37 | Discharge Summary ---
Providers - Providers Date of Admission: 10/29/17 14:06 Date of discharge: 10/31/17 Attending physician: MAURA MENDOZA 10/29/17 Consult to Cardiac Rehabilitation [CONS] Routine Reason For Exam: Phase I 10/29/17 14:09 Consult to Physician [CONS] Routine Comment: Consulting Provider: BRIGITTE PRATHER Physician Instructions: Reason For Exam: CHF Primary care physician: PRESS ASSISTANT Hospitalization Condition: Stable Disposition: - TO HOME OR SELFCARE Time spent for discharge: 31 min Core Measure Documentation - Palliative Care Palliative Care/ Comfort Measures: Not Applicable - Core Measures Any of the following diagnoses?: heart failure - Heart Failure Discharge Requirements KATELYN/ARB for LVSD if EF <40%: Yes Beta marty at discharge: Yes Exam - Constitutional Vitals: Temp Pulse Resp BP Pulse Ox 98.3 F 75 17 137/83 98 10/31/17 08:45 10/31/17 08:45 10/31/17 08:45 10/31/17 08:45 10/31/17 08:45 General appearance: Present: no acute distress, well-nourished - EENT Eyes: Present: PERRL, EOM intact - Neck Neck: Present: supple, normal ROM - Respiratory Respiratory effort: normal Respiratory: bilateral: diminished, negative: rales, rhonchi, wheezing - Cardiovascular Rhythm: regular Heart Sounds: Present: S1 & S2 - Extremities Extremities: no ischemia, No edema - Abdominal General gastrointestinal: Present: soft, non-tender, non-distended, normal bowel sounds - Integumentary Integumentary: Present: clear, warm - Musculoskeletal Musculoskeletal: strength equal bilaterally, generalized weakness - Psychiatric Psychiatric: appropriate mood/affect, cooperative - Neurologic Neurologic: CNII-XII intact, moves all extremities Plan Activity: advance as tolerated, fall precautions Diet: diabetic, other (cardiac diet) Additional Instructions: If you have chest pain or shortness of breath contact M.D. or go to emergency room. History notice any bleeding; stop Xeralto and contact M.D. Follow up with: PRIMARY CARE, [Primary Care Provider] - 3-5 Days SILAS MCELROY MD [Staff Physician] - 7 Days Prescriptions: Furosemide [Lasix TAB] 40 mg PO QDAY #30 tablet Rivaroxaban [Xarelto] 20 mg PO QPM #30 tablet
[2017-10-31] MEDS ORDERED: XARELTO PO SCH (10:20)
--- NOTE | 2017-10-31 10:22 | Progress Note ---
Assessment and Plan chest pain mi r/o acute on chronic systolic heart failure aicd htn chol dm Acute respiratory failure dvt rec: Increase Lasix to 40 mg with history of DVT increase xarelto to 20 mg continue other home medications and follow up in cardiology clinic this week Subjective Date of service: 10/31/17 Principal diagnosis: chest pain and shortness of breath Interval history: Patient is walking without any chest pain shortness of breath Objective Vital Signs Temp Pulse Resp BP BP Pulse Ox 10/31/17 08:45 98.3 F 75 17 137/83 98 10/31/17 05:20 97.8 F 71 20 124/78 95 10/31/17 02:39 71 10/31/17 00:29 98.6 F 73 20 115/66 97 10/30/17 21:51 71 150/94 10/30/17 21:49 98.3 F 71 20 150/94 97 10/30/17 20:24 98.3 F 71 20 127/78 97 10/30/17 16:13 98.0 F 78 18 146/78 99 10/30/17 11:54 98.2 F 65 18 145/87 98 - Physical Examination General: No Apparent Distress HEENT: Positive: PERRL, Mucus Membranes Moist Neck: Positive: neck supple, trachea midline Cardiac: Positive: Reg Rate and Rhythm Lungs: Positive: clear to auscultation Neuro: Positive: Grossly Intact Abdomen: Positive: Soft, Active Bowel Sounds. Negative: Tender, Distended Skin: Positive: Clear Incision: Cardiac Cath Site Musculoskeletal: No Pain, Normal Range of Motion Extremities: Present: normal. Absent: edema - Imaging and Cardiology Stress echo: other (Pharmacologic MPI stress test done at [facility] on 06/04/2017 showed fixed defect in the basal inferolateral and mid inferolateral location, EF 30-39%, no significant ischemia, no significant change from stress test done 10/2015. ) Echo: report reviewed (07/2017 EF 30-35% with severe palmar hypertension moderate aortic stenosis with mild aortic regurgitation moderate severe tricuspid regurgitation moderate severe mitral regurgitation) Cardiac cath: report reviewed ([facility] done 11/2016 showed mild luminal irregularities throughout the left and right coronary system with no high grade lesions. ~Widely patent LAD/D2 stents, Severe LV dysfunction with a LVEF of 20% with severe MR 4+.) - Telemetry EKG Rhythm: Sinus Rhythm
[2017-10-31] MEDS: IMDUR PO SCH (10:28)
[2017-10-31] MEDS: COREG PO SCH (10:28)
[2017-10-31] MEDS: GLUCOPHAGE PO SCH ×2 (10:28→18:25)
[2017-10-31] MEDS: K-DUR PO SCH (10:29)
[2017-10-31] MEDS: PLAVIX PO SCH (10:29)
[2017-10-31] MEDS: PEPCID PO SCH (10:29)
[2017-10-31] MEDS: SODIUM CHLORIDE FLUSH SYRINGE 10 ML IV SCH (10:31)
[2017-10-31] MEDS: HALFPRIN EC PO SCH (10:32)
[2017-10-31] MEDS ORDERED: LASIX PO SCH (11:00)
[2017-10-31 16:58] VITALS: BP 124/66
--- NOTE | 2017-11-01 14:25 | Cat Scan Report ---
FINAL REPORT PROCEDURE: CT ANGIO CHEST TECHNIQUE: Computerized tomographic angiography of the chest was performed during the IV injection of iodinated nonionic contrast including image processing. The image data was postprocessed using 2-dimensional multiplanar reformatted (MPR) and 3-dimensional (MIP and/or volume rendered) techniques. HISTORY: dypsnea. Evaluate pulmonary embolus COMPARISON: No prior studies are available for comparison. FINDINGS: Pulmonary outflow tract, right and left main pulmonary arteries and their proximal branches: Clear, no filling defects seen to suggest pulmonary embolus. Pericardium: No evidence of pericardial effusion. Thoracic aorta: No evidence of aneurysmal dilatation or dissection. Coronary arteries: Are heavily calcified indicating atherosclerotic disease. Mediastinum and hilar regions: Nonspecific subcentimeter lymph nodes are visualized. No pathologically enlarged lymph nodes or masses are identified. Lung Hansen: No focal abnormalities are identified. Upper abdomen: No acute or focal abnormality is seeen. Other: Pacemaker implanted in the left side of the chest anteriorly. Cardiac leads are visualized in the right side of the heart. Contrast is seen refluxing into the inferior vena cava and intrahepatic veins is nonspecific although can be seen with tricuspid insufficiency and can also be seen with congestive heart failure. IMPRESSION: No evidence of pulmonary embolus. Atherosclerosis coronary arteries. Pacemaker in place. IV contrast reflux visualized into the inferior vena cava and intrahepatic veins suggest tricuspid insufficiency. This can also be seen with mild CHF.
== END 2017-11-01 00:13 | disposition home or self-care (01) | DRG 291 ==
LOC: ED 09:26 → 4A 14:06
PROVIDERS: ADMIT Internal Medicine; ATTEND Internal Medicine
DX: I11.0 Hypertensive heart disease with heart failure (principal); J96.00 Acute respiratory failure, unspecified whether with hypoxia or hypercapnia; I50.23 Acute on chronic systolic (congestive) heart failure; E78.5 Hyperlipidemia, unspecified; I25.10 Atherosclerotic heart disease of native coronary artery without angina pectoris; E11.9 Type 2 diabetes mellitus without complications; Z95.810 Presence of automatic (implantable) cardiac defibrillator; Z86.718 Personal history of other venous thrombosis and embolism; Z86.711 Personal history of pulmonary embolism; Z90.710 Acquired absence of both cervix and uterus; Z82.49 Family history of ischemic heart disease and other diseases of the circulatory system; Z88.5 Allergy status to narcotic agent; Z79.82 Long term (current) use of aspirin; Z79.899 Other long term (current) drug therapy; Z79.4 Long term (current) use of insulin; Z95.5 Presence of coronary angioplasty implant and graft
CPT/HCPCS: 36415; 71045; 71275; 80048; 80307; 81001; 82550; 82962; 83690; 83880; 84439; 84443; 84484; 85025; 85379; 85610; 85730; 93005; 93010; A9270-GY; J1815; J1940; Q9967

== ENCOUNTER 2017-11-21 17:18 | Emergency (ER) | payer MEDICAID ==
[2017-11-21 18:18] LABS: Basophils % (Auto) 0.5 % (0.0-1.8); Eosinophils # (Auto) 0.1 K/mm3 (0.0-0.4); Eosinophils % (Auto) 1.9 % (0.0-4.3); Hematocrit 32.3 % (30.3-42.9); Hemoglobin 10.1 gm/dl (10.1-14.3); Lymphocytes # (Auto) 1.8 K/mm3 (1.2-5.4); Lymphocytes % (Auto) 25.7 % (13.4-35.0); Mean Corpuscular HGB Conc 31 % (30-34); Mean Corpuscular Hemoglobin 28 pg (28-32); Mean Corpuscular Volume 88 fl (79-97); Monocytes # (Auto) 0.4 K/mm3 (0.0-0.8); Monocytes % (Auto) 5.8 % (0.0-7.3); Platelet Count 257 K/mm3 (140-440); Red Blood Count 3.68 M/mm3 (3.65-5.03); Red Cell Distribution Width 19.9 % (13.2-15.2)
[2017-11-21 18:32] LABS: Calcium 9.3 mg/dL (8.4-10.2)
[2017-11-22] MEDS ORDERED: NORCO 10/325 PO ONE (03:15)
[2017-11-22] MEDS ORDERED: ZOFRAN ODT PO ONE (03:15)
--- NOTE | 2017-11-22 03:19 | Emergency Department Report ---
ED Chest Pain HPI - General Chief Complaint: Abdominal Pain Stated Complaint: CHEST PAIN Time Seen by Provider: 11/22/17 02:51 Source: patient, old records reviewed Mode of arrival: Ambulatory Limitations: No Limitations - History of Present Illness Initial Comments: 57-year-old female with a past medical history of CHF EF of 30-35%, AICD, dyslipidemia, PE on Xarelto, diabetes, and hypertension presents to the hospital complaining of chest pain x 3 days. Triage noted right upper quadrant pain but patient did not initially mention abdominal pain but states she has both stomach pain and chest pain. She points to her mid abdomen as area of pain and middle chest. No reports of diarrhea. Patient lying fairly flat in the bed without shortness of breath and resting with eyes closed during my history taking and physical examination. Per note patient was here yesterday with same complaint but eloped prior to M.D. evaluation. Previous medical record review patient was admitted here October 29 until October 31 for chest pain and worsening shortness of breath. CT chest showed no PE, upper sclerosis of coronary artery disease, pacemaker in place, and mild CHF. Chest x -ray showed cardiac megaly with pulmonary venous congestion. She was evaluated by cardiology with optimization of her medications as per cardiolgy consult note - Imaging and Cardiology Stress echo: other (Pharmacologic MPI stress test done at [facility] on 06/04/2017 showed fixed defect in the basal inferolateral and mid inferolateral location, EF 30-39%, no significant ischemia, no significant change from stress test done 10/2015. ) Echo: report reviewed (07/2017 EF 30-35% with severe palmar hypertension moderate aortic stenosis with mild aortic regurgitation moderate severe tricuspid regurgitation moderate severe mitral regurgitation) Cardiac cath: report reviewed ([facility] done 11/2016 showed mild luminal irregularities throughout the left and right coronary system with no high grade lesions. ~Widely patent LAD/D2 stents, Severe LV dysfunction with a LVEF of 20% with severe MR 4+.) - Related Data Home Medications Medication Instructions Recorded Confirmed Last Taken Acetaminophen [Acetaminophen ER] 650 mg PO Q4H 06/14/17 10/29/17 Unknown Clopidogrel [Plavix] 75 mg PO QDAY 06/14/17 10/29/17 Unknown ISOSORBIDE MONOnitrate [Imdur ER] 60 mg PO QDAY 06/14/17 10/29/17 Unknown Carvedilol [Coreg] 12.5 mg PO BID 07/12/17 10/29/17 Unknown Rosuvastatin Calcium [Crestor] 40 mg PO DAILY 07/12/17 10/29/17 Unknown Previous Rx's Medication Instructions Recorded Last Taken Type Insulin Glargine [Lantus VIAL] 5 units SUB-Q QAMDIAB 30 Days #30 08/09/17 Unknown Rx units Potassium Chloride [K-Dur] 10 meq PO QDAY #60 tablet 08/09/17 Unknown Rx traMADol [Ultram 50 MG tab] 50 mg PO Q6HR PRN #20 tablet 09/22/17 Unknown Rx Furosemide [Lasix TAB] 40 mg PO QDAY #30 tablet 10/31/17 Unknown Rx Lisinopril [Prinivil] 5 mg PO DAILY #30 tablet 10/31/17 Unknown Rx Rivaroxaban [Xarelto] 20 mg PO QPM #30 tablet 10/31/17 Unknown Rx HYDROcodone/APAP 7.5-325 [[place] 1 each PO Q6HR PRN #10 tablet 11/22/17 Unknown Rx 7.5-325 mg TAB] Ondansetron [Zofran ODT TAB] 4 mg PO Q8HR PRN #20 tab.rapdis 11/22/17 Unknown Rx Allergies Allergy/AdvReac Type Severity Reaction Status Date / Time codeine Allergy Hives Verified 07/12/17 07:54 Heart Score - HEART Score History: Slightly suspicious EKG: Normal Age: 45-65 Risk factors: > 3 risk factors or hx of atherosclerotic disease Troponin: < normal limit HEART Score: 3 ED Review of Systems ROS: Stated complaint: CHEST PAIN Other details as noted in HPI Comment: All other systems reviewed and negative ED Past Medical Hx - Past Medical History Hx Hypertension: Yes Hx Heart Attack/AMI: No Hx Congestive Heart Failure: Yes Hx Diabetes: Yes Hx Deep Vein Thrombosis: Yes Hx Asthma: No Hx COPD: No Hx Dementia: No Hx HIV: No - Surgical History Hx Coronary Stent: Yes (8 stents) Additional Surgical History: hysterectomy - Social History Smoking Status: Current Every Day Smoker Substance Use Type: None - Medications Home Medications: Home Medications Medication Instructions Recorded Confirmed Last Taken Type Acetaminophen [Acetaminophen ER] 650 mg PO Q4H 06/14/17 10/29/17 Unknown History Clopidogrel [Plavix] 75 mg PO QDAY 06/14/17 10/29/17 Unknown History ISOSORBIDE MONOnitrate [Imdur ER] 60 mg PO QDAY 06/14/17 10/29/17 Unknown History Carvedilol [Coreg] 12.5 mg PO BID 07/12/17 10/29/17 Unknown History Rosuvastatin Calcium [Crestor] 40 mg PO DAILY 07/12/17 10/29/17 Unknown History Insulin Glargine [Lantus VIAL] 5 units SUB-Q QAMDIAB 30 Days #30 08/09/17 Unknown Rx units Potassium Chloride [K-Dur] 10 meq PO QDAY #60 tablet 08/09/17 10/29/17 Unknown Rx traMADol [Ultram 50 MG tab] 50 mg PO Q6HR PRN #20 tablet 09/22/17 10/29/17 Unknown Rx Furosemide [Lasix TAB] 40 mg PO QDAY #30 tablet 10/31/17 Unknown Rx Lisinopril [Prinivil] 5 mg PO DAILY #30 tablet 10/31/17 Unknown Rx Rivaroxaban [Xarelto] 20 mg PO QPM #30 tablet 10/31/17 Unknown Rx HYDROcodone/APAP 7.5-325 [[place] 1 each PO Q6HR PRN #10 tablet 11/22/17 Unknown Rx 7.5-325 mg TAB] Ondansetron [Zofran ODT TAB] 4 mg PO Q8HR PRN #20 tab.rapdis 11/22/17 Unknown Rx ED Physical Exam - General Limitations: No Limitations - Other Other exam information: General: No limitations, patient is alert in no acute distress Head exam: Atraumatic, normocephalic Eyes exam: Normal appearance ENT: Moist mucous membrane, normal oropharynx Neck exam: Normal inspection, full range of motion, no meningismus nontender Respiratory exam: Clear to auscultation bilateral, no wheezes, rales, crackles Cardiovascular: Normal rate and rhythm, reproducible sternal chest wall tenderness Abdomen: Soft, nondistended, and nontender, mild generalized abdominal tenderness Extremity: Full range of motion normal inspection no deformity, calf tenderness or edema Back: Normal Inspection, full range of motion, no tenderness Neurologic: Alert, oriented x3, cranial nerves intact, no motor or sensory deficit Psychiatric: normal affect, normal mood Skin: Warm, dry, intact ED Course Vital Signs 11/21/17 11/22/17 17:29 03:33 Temperature 97.8 F Pulse Rate 87 83 Respiratory 20 16 Rate Blood Pressure 148/91 Blood Pressure 146/88 [Left] O2 Sat by Pulse 100 100 Oximetry GISELLE score - Giselle Score Age > 65: (0) No Aspirin use within the Past 7 Days: (1) Yes 3 or more CAD Risk Factors: (1) Yes 2 or more Angina events in past 24 hrs: (1) Yes Known CAD with more than 50% Stenosis: (1) Yes Elevated Cardiac Markers: (1) Yes ST Deviation Greater than 0.5mm: (0) No GISELLE Score: 5 ED Medical Decision Making - Lab Data Result diagrams: 11/21/17 18:00 11/21/17 18:00 Lab Results 11/21/17 11/21/17 11/21/17 Range/Units 18:00 18:00 18:00 WBC 7.1 (4.5-11.0) K/mm3 RBC 3.68 (3.65-5.03) M/mm3 Hgb 10.1 (10.1-14.3) gm/dl Hct 32.3 (30.3-42.9) % MCV 88 (79-97) fl MCH 28 (28-32) pg MCHC 31 (30-34) % RDW 19.9 H (13.2-15.2) % Plt Count 257 (140-440) K/mm3 Lymph % (Auto) 25.7 (13.4-35.0) % [place] % (Auto) 5.8 (0.0-7.3) % Eos % (Auto) 1.9 (0.0-4.3) % Baso % (Auto) 0.5 (0.0-1.8) % Lymph # 1.8 (1.2-5.4) K/mm3 [place] # 0.4 (0.0-0.8) K/mm3 Eos # 0.1 (0.0-0.4) K/mm3 Baso # 0.0 (0.0-0.1) K/mm3 Seg Neutrophils % 66.1 (40.0-70.0) % Seg Neutrophils # 4.7 (1.8-7.7) K/mm3 Sodium 132 L (137-145) mmol/L Potassium 5.0 (3.6-5.0) mmol/L Chloride 97.3 L (98-107) mmol/L Carbon Dioxide 23 (22-30) mmol/L Anion Gap 17 mmol/L BUN 18 H (7-17) mg/dL Creatinine 1.2 (0.7-1.2) mg/dL Estimated GFR 56 ml/min BUN/Creatinine Ratio 15 % Glucose 185 H (65-100) mg/dL Calcium 9.3 (8.4-10.2) mg/dL Total Bilirubin 0.50 (0.1-1.2) mg/dL AST 22 (5-40) units/L ALT 9 (7-56) units/L Alkaline Phosphatase 159 H (35-129) units/L Troponin T < 0.010 (0.00-0.029) ng/mL Total Protein 7.5 (6.3-8.2) g/dL Albumin 3.0 L (3.9-5) g/dL Albumin/Globulin Ratio 0.7 % Lipase 26 (13-60) units/L 06/25/18 Range/Units 04:36 WBC (4.5-11.0) K/mm3 RBC (3.65-5.03) M/mm3 Hgb (10.1-14.3) gm/dl Hct (30.3-42.9) % MCV (79-97) fl MCH (28-32) pg MCHC (30-34) % RDW (13.2-15.2) % Plt Count (140-440) K/mm3 Lymph % (Auto) (13.4-35.0) % [place] % (Auto) (0.0-7.3) % Eos % (Auto) (0.0-4.3) % Baso % (Auto) (0.0-1.8) % Lymph # (1.2-5.4) K/mm3 [place] # (0.0-0.8) K/mm3 Eos # (0.0-0.4) K/mm3 Baso # (0.0-0.1) K/mm3 Seg Neutrophils % (40.0-70.0) % Seg Neutrophils # (1.8-7.7) K/mm3 Sodium (137-145) mmol/L Potassium (3.6-5.0) mmol/L Chloride (98-107) mmol/L Carbon Dioxide (22-30) mmol/L Anion Gap mmol/L BUN (7-17) mg/dL Creatinine (0.7-1.2) mg/dL Estimated GFR ml/min BUN/Creatinine Ratio % Glucose (65-100) mg/dL Calcium (8.4-10.2) mg/dL Total Bilirubin (0.1-1.2) mg/dL AST (5-40) units/L ALT (7-56) units/L Alkaline Phosphatase (35-129) units/L Troponin T < 0.010 (0.00-0.029) ng/mL Total Protein (6.3-8.2) g/dL Albumin (3.9-5) g/dL Albumin/Globulin Ratio % Lipase (13-60) units/L - EKG Data -: EKG Interpreted by Me (prob old anteroseptal infarct) EKG shows normal: sinus rhythm, axis (qrs 54), QRS complexes (qrsd 103), ST-T waves (no stemi/t inv) Rate: normal (84) - EKG Data When compared to previous EKG there are: no significant change - Radiology Data Radiology results: report reviewed FINAL REPORT EXAM: XR CHEST ROUTINE 2V HISTORY: cp TECHNIQUE: PA and lateral views of the chest were submitted. FINDINGS: The heart is moderately enlarged. The lungs are not congested. There are no localized infiltrates or effusions. There is a pacemaker device overlying the left chest wall with lead in the right ventricle. The skeletal structures otherwise do not show any acute changes. IMPRESSION: Cardiomegaly. No acute process in the chest - Medical Decision Making cp atypical, reproducible normal vitals trop neg x 2 ekg unchanged norco given recent admission, cta angio, and card eval on Xarelto n/v and abd pain no vomiting in ed tolerating po given zofran abd labs unremarkable, no leukocytosis will d/c on norco, zofran pcp, cards f/u - Differential Diagnosis costochondritis, chronic pain, drug-seeking, PE, gastritis Critical Care Time: No Critical care attestation.: If time is entered above; I have spent that time in minutes in the direct care of this critically ill patient, excluding procedure time. ED Disposition Clinical Impression: Chest wall pain, Nausea and vomiting Disposition: DC- TO HOME OR SELFCARE Is pt being admited?: No Does the pt Need Aspirin: No Condition: Stable Instructions: Chest Pain (ED), Acute Nausea and Vomiting (ED) Additional Instructions: Take you meds. 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
--- NOTE | 2017-11-22 04:59 | XRay Report ---
FINAL REPORT EXAM: XR CHEST ROUTINE 2V HISTORY: cp TECHNIQUE: PA and lateral views of the chest were submitted. FINDINGS: The heart is moderately enlarged. The lungs are not congested. There are no localized infiltrates or effusions. There is a pacemaker device overlying the left chest wall with lead in the right ventricle. The skeletal structures otherwise do not show any acute changes. IMPRESSION: Cardiomegaly. No acute process in the chest
[2017-11-22 05:27] VITALS: BP 145/80
== END 2017-11-22 06:02 | disposition home or self-care (01) ==
LOC: ED 17:18
DX: R11.2 Nausea with vomiting, unspecified (principal); R07.89 Other chest pain; I10 Essential (primary) hypertension; I50.9 Heart failure, unspecified; E11.9 Type 2 diabetes mellitus without complications; F17.200 Nicotine dependence, unspecified, uncomplicated; Z86.718 Personal history of other venous thrombosis and embolism; Z90.710 Acquired absence of both cervix and uterus; Z79.4 Long term (current) use of insulin; Z88.5 Allergy status to narcotic agent
CPT/HCPCS: 36415; 71046; 80053; 83690; 84484; 85025; 93005; 93010; Q0162